=== PATIENT | female | born 1970 | race Caucasian/White ===

== ENCOUNTER 2017-01-26 08:53 | Outpatient (CLI) | payer BC ==
[2017-01-26] MEDS ORDERED: Iopamidol 370 76% 100 ML VIAL ONE (09:00)
--- NOTE | 2017-01-26 11:42 | CT ---
CONTRAST ENHANCED CT IMAGES OF THE ABDOMEN AND PELVIS: History: Lower abdominal pain. R10.30 Technique: Contrast enhanced CT images of the abdomen and pelvis obtained on 01-26-17. Comparison: 03-23-13 FINDINGS: Contrast enhanced CT images of the abdomen and pelvis demonstrate gastric surgical miesha and clips in place. Gastric bypass changes seen. The lung bases are unremarkable. No evidence of free intraperitoneal air is seen. The liver and spleen are unremarkable. The pancreas is unremarkable. The gallbladder has been surgica lly removed. Adrenal glands are unremarkable. The kidneys are unremarkable. No evidence of periaortic lymphadenopathy is seen. There is a right ovarian cyst or cystic lesion with 3D measurements measuring 4.4 x 4.1 x 4.1 cm. Thi s has not significantly changed since the previous exam. No other significant abnormality is seen. IMPRESSION: Right ovarian cyst or cystic lesion. Correlate with pelvic sonography, electively. POS: [facility]
== END 2017-01-26 08:54 | disposition home or self-care (01) ==
LOC: SCSCT 08:53
PROVIDERS: ATTEND Family Medicine
DX: R10.30 Lower abdominal pain, unspecified (principal); N83.201 Unspecified ovarian cyst, right side
CPT/HCPCS: 74177

== ENCOUNTER 2017-02-05 05:25 | Emergency (ER) | payer BC ==
[2017-02-05] MEDS ORDERED: Ondansetron HCl/PF 4 MG/2 ML Vial ONE (06:19)
[2017-02-05 06:49] LABS: #Basophils 0.1 thou/uL (0.0-0.2); #Lymphocytes 1.4 thou/uL (1.20-3.40); #Monocytes 0.7 thou/uL (0.11-0.59); #Neutrophils 6.6 thou/uL (1.40-6.50); %Basophils 0.8 % (0.0-1.0); %Eosinophils 0.3 % (0.0-10.0); %Lymphocytes 15.4 % (21.0-51.0); %Monocytes 8.2 % (0.0-10.0); %Neutrophils 75.3 % (42.0-75.0); Hemoglobin 17.2 g/dL (12.0-16.0); Mean Corpuscular HGB CONC 33.1 g/dL (32.0-36.0); Mean Corpuscular Volume 81.6 fl (81.0-99.0); Mean Platelet Volume 7.6 fL (7.4-10.4); Platelet Count 187 thou/uL (130-400); RBC Distribution Width 12.3 % (11.5-14.5); Red Blood Cell (RBC) Count 6.39 mill/uL (4.20-5.40); White Blood Cell (WBC) Count 8.8 thou/uL (4.8-10.8)
[2017-02-05] MEDS ORDERED: Ketorolac Tromethamine 30 MG/ML VIAL ONE (07:12)
[2017-02-05 07:15] LABS: ALT (SGPT) 39 U/L (8-55); AST (SGOT) 103 U/L (5-34); Albumin 2.7 g/dL (3.5-5.0); Alkaline Phosphatase 77 U/L (40-150); Anion Gap 14 mmol/L (10-20); BUN (Urea Nitrogen) 17 mg/dL (7.0-18.7); Bilirubin, Total 0.4 mg/dL (0.2-1.2); CK (CPK) 4764 U/L (29-168); Calc. Creatinine Clearance 0 mL/min (70-130); Calcium 8.3 mg/dL (7.8-10.44); Carbon Dioxide 25 mmol/L (22-29); Chloride 100 mmol/L (98-107); Estimated GFR-MDRD 81; Globulin 2.5 g/dL (2.4-3.5); Glucose 113 mg/dL (70-105); Protein, Total 5.2 g/dL (6.0-8.3); Sodium 135 mmol/L (136-145)
[2017-02-05 08:11] LABS: Bilirubin Small (Negative); Blood, Urine Moderate (Negative); Clarity Hazy (Clear); Glucose, Urine (Dipstick) Negative (Negative); Leukocyte Negative (Negative); Nitrite Negative (Negative); Protein, Urine (Dipstick) 30 mg/dL (Neg-Trace); Specific Gravity, Urine 1.028 (1.002-1.036)
[2017-02-05 08:12] LABS: Pregnancy Test - Urine (BHCG) Negative (Negative); Pregu Control Background? CLEAR/WHITE (CLR/WHITE); Pregu Control Bar Appear? YES (CONTROL BAR); Specific Gravity 1.028 (1.002-1.036)
[2017-02-05 08:21] LABS: WBC/HPF None Seen HPF (0-3)
[2017-02-05 08:22] LABS: Bacteria/HPF 1+ HPF (None Seen)
[2017-02-05 19:49] LABS: Amphetamine Not Detected (NotDetected); Barbiturates Screen Not Detected (NotDetected); Benzodiazepine Screen Not Detected (NotDetected); Cocaine Metabolite Screen Not Detected (NotDetected); Medtox Control Line Valid? VALID (VALID); Methadone Not Detected (NotDetected); Methamphetamine Not Detected (NotDetected); Opiate Screen Detected (NotDetected); Oxycodone Screen Not Detected (NotDetected); Phencyclidine (PCP) Not Detected (NotDetected); THC/Cannabinoid Screen Not Detected (NotDetected); Tricyclic Screen Detected (NotDetected)
== END 2017-02-05 10:07 | disposition home or self-care (01) ==
LOC: SCSER 05:25
DX: J11.1 Influenza due to unidentified influenza virus with other respiratory manifestations (principal); R74.8 Abnormal levels of other serum enzymes
CPT/HCPCS: 80053; 80306; 81003; 81015; 81025; 82550; 85025; J1885; J2405

== ENCOUNTER 2017-02-05 16:33 | Inpatient (IN) | payer BC ==
[2017-02-05] MEDS ORDERED: Ondansetron HCl/PF 4 MG/2 ML Vial ONE (18:15)
[2017-02-05] MEDS ORDERED: Morphine 4 MG/ML VIAL ONE (18:15)
[2017-02-05 18:30] LABS: #Monocytes 0.7 thou/uL (0.11-0.59); #Neutrophils 10.2 thou/uL (1.40-6.50); %Basophils 0.1 % (0.0-1.0); %Eosinophils 0.1 % (0.0-10.0); %Lymphocytes 8.5 % (21.0-51.0); %Monocytes 5.6 % (0.0-10.0); %Neutrophils 85.8 % (42.0-75.0); Hemoglobin 18.4 g/dL (12.0-16.0); Mean Corpuscular Hemoglobin 28.3 pg (27.0-31.0); Mean Corpuscular Volume 85.7 fl (81.0-99.0); Mean Platelet Volume 7.5 fL (7.4-10.4); Platelet Count 182 thou/uL (130-400); RBC Distribution Width 13.6 % (11.5-14.5); Red Blood Cell (RBC) Count 6.49 mill/uL (4.20-5.40); White Blood Cell (WBC) Count 11.9 thou/uL (4.8-10.8)
[2017-02-05 18:50] LABS: ALT (SGPT) 110 U/L (8-55); AST (SGOT) 327 U/L (5-34); Albumin 2.8 g/dL (3.5-5.0); Alkaline Phosphatase 82 U/L (40-150); Anion Gap 15 mmol/L (10-20); BUN (Urea Nitrogen) 12 mg/dL (7.0-18.7); Bilirubin, Total 0.4 mg/dL (0.2-1.2); Calc. Creatinine Clearance 0 mL/min (70-130); Calcium 8.3 mg/dL (7.8-10.44); Carbon Dioxide 20 mmol/L (22-29); Chloride 102 mmol/L (98-107); Estimated GFR-MDRD Greater than 90; Globulin 2.7 g/dL (2.4-3.5); Glucose 131 mg/dL (70-105); Potassium 4.2 mmol/L (3.5-5.1); Protein, Total 5.5 g/dL (6.0-8.3); Sodium 133 mmol/L (136-145)
[2017-02-05 19:04] LABS: CK (CPK) 17531 U/L (29-168)
[2017-02-05] MEDS ORDERED: Acetaminophen 650 MG Suppository PR PRN (19:16)
[2017-02-05] MEDS ORDERED: Bisacodyl 5 MG TAB PO PRN (19:16)
[2017-02-05] MEDS ORDERED: cefTRIAXone\\ROCEPHIN 2 GM in Sodium Chloride 0.9% 100 ML IVPB SCH (19:30)
[2017-02-05] MEDS ORDERED: cefTRIAXone\\ROCEPHIN 1 GM in Sodium Chloride 0.9% 100 ML IVPB SCH (19:30)
--- NOTE | 2017-02-05 19:50 | HP ---
CHIEF COMPLAINT: Body aches. HISTORY OF PRESENT ILLNESS: Ms. Sumner is a pleasant 46-year-old lady, who was seen at [facility] on 02/05/2017. She reports that her son and daughter tested positive for flu recently. Over the last 2 days, she has had body aches. She was diagnosed with flu at an Urgent [facility] 2 days ago. She has ongoing body aches. She also reports headache. She also reports temperature of 100.1 degrees Fahrenheit at home. She also reports having dry heaves until 2 days ago. She now has nausea. She feels lightheaded with movement. She denies any urinary symptoms. She reports poor oral intake. She denies any abdominal pain. She went to [facility] earlier today. She was diagnosed with rhabdomyolysis and was recommended admission. She declined admission and went home. She subsequently presented at this emergency room for further management. REVIEW OF SYSTEMS: The following complete review of systems was negative, unless otherwise mentioned in the HPI or below: Constitutional: Weight loss or gain, sense of well-being, ability to conduct usual activities, exercise tolerance. Skin/Breast: Rash, itching, changes in hair growth or loss, nail changes, breast lumps, tenderness, swelling, nipple discharge. Eyes: Vision, double vision, tearing, blind spots, pain. ENT/Mouth: Headaches (location, time of onset, duration, precipitating factors) , vertigo, lightheadedness, injury. Vision, double vision, tearing, blind spots , pain, nose bleeding, colds, obstruction, discharge, dental difficulties, gingival bleeding, dentures, neck stiffness, pain, tenderness, masses in thyroid or other areas Cardiovascular: Precordial pain, substernal distress, palpitations, syncope, dyspnea on exertion, orthopnea, nocturnal paroxysmal dyspnea, edema, cyanosis, hypertension, heart murmurs, varicosities, phlebitis, claudication. Respiratory: Pain, shortness of breath, wheezing, stridor, cough, hemoptysis, fever or night sweats Gastrointestinal: Poor appetite, dysphagia, indigestion, abdominal pain, heartburn, eructation, nausea, vomiting, hematemesis, jaundice, constipation, or diarrhea, abnormal stools (kvng-colored, tarry, bloody, greasy, foul smelling ), flatulence, hemorrhoids, recent changes in bowel habits. Genitourinary: Urgency, frequency, dysuria, nocturia, hematuria, polyuria, oliguria, unusual (or change in) color of urine, stones, hesitancy, change in size of stream, dribbling, acute retention or incontinence, libido, potency. Musculoskeletal: Pain, swelling, redness or heat of muscles or joints, limitation, of motion, muscular weakness, atrophy, cramps. Neurologic/Psychiatric: Convulsions, paralyses, tremor, incoordination, parasthesias, difficulties with memory of speech, sensory or motor disturbances , or muscular coordination (ataxia, tremor), emotional problems, anxiety, depression, previous psychiatric care, unusual perceptions, hallucinations. Allergy/Immunologic: Skin rash, anemia, bleeding tendency, polydipsia, polyuria , intolerance to heat or cold. PAST MEDICAL HISTORY: Significant for hypothyroidism, iron deficiency anemia, irregular menses, depression, insomnia, gastroesophageal reflux disease, and temporomandibular joint problems. PAST SURGICAL HISTORY: Significant for gastric bypass, cholecystectomy, and section x2. SOCIAL HISTORY: The patient denies tobacco use, alcohol use or recreational drug use. FAMILY HISTORY: Significant for hypertension in her sister and mother. ALLERGIES: LEVAQUIN, which causes rash. CURRENT MEDICATIONS: These include levothyroxine 125 mcg daily and Seroquel 100 mg daily. PHYSICAL EXAMINATION: GENERAL: Ms. Sumner is awake and alert, not in acute distress. VITAL SIGNS: Blood pressure is 131/97, pulse is 102. She is breathing at rate of 20 and saturating 96% on room air. She is afebrile. EYES: No scleral icterus. No conjunctival pallor. ENT: Dry mucosal membranes. No oropharyngeal erythema or exudates. NECK: Supple, nontender, normal range of movement. Trachea is midline. RESPIRATORY: Accessory muscles of breathing are not active. Chest wall movements are symmetric bilaterally. LUNGS: Clear to auscultation without wheeze, rhonchi, or crepitations. CARDIOVASCULAR: S1 and S2 are heard, tachycardic and regular. LUNGS: Peripheral pulses palpable. No carotid bruit, no pericardial rub. ABDOMEN: Soft, nontender, bowel sounds heard, no hepatomegaly, no splenomegaly. NEUROLOGIC: Cranial nerves II through XII are intact. Deep tendon reflexes 2+. MUSCULOSKELETAL: Power is 5/5 in all 4 extremities. Normal range of movement at all major extremity joints. SKIN: No rashes or subcutaneous nodules. LYMPHATIC: No cervical lymphadenopathy. PSYCHIATRIC: Normal mood, normal affect, patient is oriented to person, place, and time. Ms. Sumner's labs and investigations were reviewed. Urinalysis is positive for protein, nitrite, blood, bilirubin, and bacteria. She has leukocytosis with 11, 900 white cells, of which 85.8% on neutrophils. She has polycythemia with hemoglobin of 18.4. Platelet count is normal. Sodium is decreased at 133, potassium is normal, lactic acid is elevated at 4.2, carbon dioxide is decreased at 20, creatinine is normal at 0.69, AST is elevated at 327, ALT is elevated at 110, total bilirubin and alkaline phosphatase are normal and a urine test is negative. Her CK was 6520 earlier today, now it is 17,531. ASSESSMENT AND PLAN: Ms. Sumner is a pleasant 46-year-old lady, who was seen at [facility] on 02/05/2017. Her problem list includes: 1. Rhabdomyolysis: Most likely secondary to influenza or other viral illness. She will be admitted to the hospital and treated with intravenous fluids. Her creatinine is normal at this time. This will need to be followed. 2. Influenza infection: Suspected. Influenza screen is pending. However, since it has been a few days since the onset of her symptoms, patient and her do not want to be started on Tamiflu (they discussed with the ER physician at [facility]). 3. Hyponatremia: Mild, recheck. 4. Abnormal liver function test: Isolated transaminitis, likely due to rhabdomyolysis. Recheck liver function tests. 5. Elevated lactic acid: Likely due to infection, rechecked. 6. Urinary tract infection: Suspected. Continue ceftriaxone, which has been started in the emergency room. I will await urine cultures and blood cultures. Many thanks for allowing me to participate in your patient's care. Please feel free to contact me with any questions or concerns. LEVEL OF RISK: Moderate. LEVEL OF COMPLEXITY: Moderate. MTDD
--- NOTE | 2017-02-05 21:19 | RAD ---
AP VIEW OF THE CHEST: INDICATIONS: Cough. IMPRESSION: No air space consolidation to suggest pneumonia. COMMENTS: The exam has not appreciably changed from the comparison dated 11/07/2013. POS: [facility]
[2017-02-05 23:40] LABS: Lactic Acid 5.2 mmol/L (0.5-2.2)
[2017-02-06] MEDS: Sodium Chloride 0.9% 1,000 ML IV SCH ×3 (01:50→16:39)
[2017-02-06] MEDS: Acetaminophen 325 MG TAB PO PRN ×3 (01:50→23:15)
[2017-02-06] MEDS ORDERED: Morphine 5 mg/5 ml in 0.9% NaCl/PF SYRINGE SLOW IVP SCH (03:00)
[2017-02-06 04:01] VITALS: BMI 34.7
[2017-02-06 05:59] LABS: #Lymphocytes 1.5 thou/uL (1.20-3.40); #Monocytes 1.1 thou/uL (0.11-0.59); #Neutrophils 12.1 thou/uL (1.40-6.50); %Basophils 0.2 % (0.0-1.0); %Eosinophils 0.2 % (0.0-10.0); %Lymphocytes 9.9 % (21.0-51.0); %Monocytes 7.3 % (0.0-10.0); %Neutrophils 82.4 % (42.0-75.0); Hemoglobin 17.3 g/dL (12.0-16.0); Mean Corpuscular HGB CONC 31.7 g/dL (32.0-36.0); Mean Corpuscular Hemoglobin 27.6 pg (27.0-31.0); Mean Platelet Volume 7.3 fL (7.4-10.4); Platelet Count 215 thou/uL (130-400); RBC Distribution Width 13.8 % (11.5-14.5); Red Blood Cell (RBC) Count 6.26 mill/uL (4.20-5.40); White Blood Cell (WBC) Count 14.7 thou/uL (4.8-10.8)
[2017-02-06 06:16] LABS: Lactic Acid 4.2 mmol/L (0.5-2.2)
[2017-02-06 06:17] LABS: Albumin 2.5 g/dL (3.5-5.0)
[2017-02-06 06:19] LABS: Glucose 104 mg/dL (70-105)
[2017-02-06 06:20] LABS: Protein, Total 5.6 g/dL (6.0-8.3)
[2017-02-06 06:21] LABS: Bilirubin, Total 0.2 mg/dL (0.2-1.2); Carbon Dioxide 16 mmol/L (22-29)
[2017-02-06 06:23] LABS: Calc. Creatinine Clearance 169 mL/min (70-130); Estimated GFR-MDRD Greater than 90
[2017-02-06 06:24] LABS: BUN (Urea Nitrogen) 9 mg/dL (7.0-18.7)
[2017-02-06 06:25] LABS: AST (SGOT) 573 U/L (5-34); Bilirubin, Direct 0.2 mg/dL (0.1-0.3)
[2017-02-06 06:28] LABS: Calcium 6.9 mg/dL (7.8-10.44); Chloride 107 mmol/L (98-107); Potassium 4.1 mmol/L (3.5-5.1); Sodium 133 mmol/L (136-145)
[2017-02-06] MEDS: Levothyroxine Sodium 100 MCG TAB PO SCH (06:40)
[2017-02-06 06:58] LABS: Anion Gap 14 mmol/L (10-20)
[2017-02-06 07:33] LABS: ALT (SGPT) 187 U/L (8-55); Alkaline Phosphatase 74 U/L (40-150)
[2017-02-06] MEDS: traMADol HCl 50 MG TAB PO PRN ×3 (08:52→20:43)
[2017-02-06 10:31] LABS: CK (CPK) 32082 U/L (29-168)
[2017-02-06 11:05] LABS: Phosphorus 3.9 mg/dL (2.3-4.7); Uric Acid 4.8 mg/dL (2.6-6.0)
--- NOTE | 2017-02-06 13:16 | PDOC.PN ---
- Subjective Encounter Start Date: 02/06/17 Encounter Start Time: 13:14 Pt seen for followup re: rhabdomyolysis. Reports feeling hot. Slept well. Reports pain all over her body. - Objective MAR Reviewed: Yes Vital Signs & Weight: Vital Signs (12 hours) Temp Pulse Resp BP Pulse Ox 02/06/17 12:51 86 18 135/87 02/06/17 08:53 96.9 F L 91 24 H 137/93 H 98 02/06/17 08:18 97.7 F 88 20 100 02/06/17 08:00 97.7 F 88 20 132/90 100 02/06/17 05:21 100 02/06/17 04:45 16 I&O: 02/05/17 02/06/17 02/07/17 06:59 06:59 06:59 Output Total 600 Balance -600 Result Diagrams: 02/06/17 05:40 02/06/17 05:40 Phys Exam - Physical Examination Constitutional: NAD HEENT: moist MMs, sclera anicteric, oral pharynx no lesions, 2+ tonsils Neck: no nodes, no JVD, supple, full ROM Respiratory: no wheezing, no rales, no rhonchi, clear to auscultation bilateral Cardiovascular: RRR, no rub Gastrointestinal: soft, non-tender, no distention, positive bowel sounds Musculoskeletal: no edema Neurological: moves all 4 limbs Psychiatric: normal affect, A&O x 3 Skin: no rash, cap refill <2 seconds Dx/Plan (1) Rhabdomyolysis Code(s): M62.82 - RHABDOMYOLYSIS Status: Acute (2) Lactic acidosis Code(s): E87.2 - ACIDOSIS Status: Acute (3) Hyponatremia Code(s): E87.1 - HYPO-OSMOLALITY AND HYPONATREMIA Status: Acute (4) Hypothyroidism Code(s): E03.9 - HYPOTHYROIDISM, UNSPECIFIED Status: Chronic (5) Depression Code(s): F32.9 - MAJOR DEPRESSIVE DISORDER, SINGLE EPISODE, UNSPECIFIED Status : Chronic - Plan continue antibiotics * . Corrected calcium level (for albumin) normal at 8.1. Continue antibiotics for now, await cultures. CK level worsening, lactic acidosis still present. Consult nephrology for opinion and help with menagement. Hyponatremia stable. TSH normal, continue synthroid. PRN tramadol for pain. Hypoalbuminemia ? secondary to inflammatory state. Review of Systems - Review of Systems Constitutional: fever Respiratory: negative: Cough, Dry, Shortness of Breath, Hemoptysis, SOB with Excertion, Pleuritic Pain, Sputum, Wheezing Cardiovascular: negative: chest pain, palpitations, orthopnea, paroxysmal nocturnal dyspnea, edema, light headedness Gastrointestinal: negative: Nausea, Vomiting, Abdominal Pain, Diarrhea, Constipation, Melena, Hematochezia, Other Genitourinary: negative: Dysuria, Frequency, Incontinence, Hematuria, Retention Musculoskeletal: Other (pain all over her body) - Medications/Allergies Allergies/Adverse Reactions: Allergies Allergy/AdvReac Type Severity Reaction Status Date / Time [facility] [[facility] Allergy Verified 05/14/14 10:53 Medications: Current Medications Acetaminophen (Tylenol) 650 mg PO Q4H PRN PRN Reason: Headache/Fever or Pain Last Admin: 02/06/17 01:50 Dose: 650 mg Acetaminophen (Tylenol) 650 mg CA Q4H PRN PRN Reason: Headache/Fever or Pain Bisacodyl (Dulcolax) 10 mg PO DAILYPRN PRN PRN Reason: Constipation Sodium Chloride (Normal Saline 0.9%) 1,000 mls @ 100 mls/hr IV .Q10H SHARRI Last Admin: 02/06/17 06:43 Dose: 1,000 mls Ceftriaxone Sodium 1 gm/ (Syringe 0.4 ml/ Sterile Water) 10 mls @ 120 mls/hr SLOW IVP 2100 SHARRI Levothyroxine Sodium (Synthroid) 200 mcg PO 0600 SHARRI Last Admin: 02/06/17 06:40 Dose: 200 mcg Quetiapine Fumarate (Seroquel) 150 mg PO QPM SHARRI Sodium Chloride (Flush - Normal Saline) 10 ml IVF Q12HR SHARRI Last Admin: 02/06/17 08:02 Dose: Not Given Sodium Chloride (Flush - Normal Saline) 10 ml IVF PRN PRN PRN Reason: Saline Flush Tramadol HCl (Ultram) 50 mg PO Q6H PRN PRN Reason: Pain Last Admin: 02/06/17 08:52 Dose: 50 mg
[2017-02-06] MEDS ORDERED: Sodium Bicarbonate 150 MEQ in Dextrose 5% in Water 1,000 ML IV SCH ×2 (16:15)
[2017-02-06] MEDS: Sodium Bicarbonate 150 MEQ in Dextrose 5% in Water 1,000 ML IV SCH ×2 (18:57)
--- NOTE | 2017-02-06 19:43 | CON ---
DATE OF CONSULTATION: 02/06/2017 CONSULTING PHYSICIAN: Ami Foreman M.D. REQUESTING PHYSICIAN: Dr. Dos Santos. REASON FOR CONSULTATION: Rhabdomyolysis worsening metabolic acidosis. IMPRESSION: 1. Rhabdomyolysis, query cause significant. 2. Metabolic acidosis likely in the context of lactic acidemia. PLAN: 1. Aggressive IV fluid resuscitation. We would change the current normal saline which is contributi ng to reexpansion acidosis and switch over to bicarb-based infusion. 2. Avoid any potentially nephrotoxic agents as the patient stands some significant risk of acute tub ular necrosis from the significant rhabdomyolysis. HISTORY OF PRESENT ILLNESS: History is that of a 46-year-old female patient who started complaining of generalized body aches 2-3 days ago, patient recently had contact with family members with flu and was treated conservatively. The patient denies any new medications. Denies any cholesterol medicat ion. The patient presented and was noted with elevated creatine phosphokinase and decision was taken to admit this patient. Initial creatine kinase was 17,531, but at time of dictation has gone up to 32,082 with worsening metabolic acidosis as evidenced by bicarbonate of 16. As a result of these fin dings, the decision has been taken to involve Renal in the management of this case. PAST MEDICAL HISTORY: Significant for hypothyroidism, iron deficiency anemia, depression, insomnia, reflux disease and temporomandibular joint problem. SOCIAL HISTORY: Denies alcohol, tobacco or illicit drug use. FAMILY HISTORY: Significant for kidney disease in the mother. ALLERGIES: LEVAQUIN. MEDICATIONS: Reviewed and as documented on [employer]. PHYSICAL EXAMINATION: GENERAL: The patient was found not to be in any respiratory distress. VITAL SIGNS: Afebrile with temperature 97.7, pulse 88, respiratory rate 18 with a blood pressure 130 /86. HEENT: Unremarkable with moist oral mucosa. Neck was supple. No conjunctival injection or icterus. CARDIOVASCULAR SYSTEM: First and second heart sounds were heard. RESPIRATORY SYSTEM: Clear to auscultation. DIGESTIVE SYSTEM: Revealed a benign abdomen with positive bowel sounds. EXTREMITIES: No peripheral edema. SKIN: No new gross rash. LYMPHATICS: No peripheral lymphadenopathy. SUMMARY: A 46-year-old female patient with worsening rhabdomyolysis. Thank you for this consultation. We will follow with you.
[2017-02-06] MEDS: cefTRIAXone\\ROCEPHIN 1 GM, Syringe 0.4 ML in Sterile Water 9.6 ML SLOW IVP SCH (23:05)
[2017-02-07] MEDS: traMADol HCl 50 MG TAB PO PRN ×3 (04:42→16:46)
[2017-02-07] MEDS: Sodium Bicarbonate 150 MEQ in Dextrose 5% in Water 1,000 ML IV SCH ×8 (04:43→16:45)
[2017-02-07 05:43] LABS: #Lymphocytes 2.1 thou/uL (1.20-3.40); %Basophils 0.2 % (0.0-1.0); %Eosinophils 0.1 % (0.0-10.0); %Lymphocytes 15.9 % (21.0-51.0); %Monocytes 7.4 % (0.0-10.0); %Neutrophils 76.4 % (42.0-75.0); Hemoglobin 18.4 g/dL (12.0-16.0); Mean Corpuscular Hemoglobin 27.7 pg (27.0-31.0); Mean Corpuscular Volume 86.5 fl (81.0-99.0); Mean Platelet Volume 7.8 fL (7.4-10.4); Platelet Count 217 thou/uL (130-400); RBC Distribution Width 14.1 % (11.5-14.5); Red Blood Cell (RBC) Count 6.66 mill/uL (4.20-5.40)
[2017-02-07] MEDS: Levothyroxine Sodium 100 MCG TAB PO SCH (06:27)
[2017-02-07 08:07] LABS: ALT (SGPT) 350 U/L (8-55); AST (SGOT) 899 U/L (5-34); Albumin 2.1 g/dL (3.5-5.0); Alkaline Phosphatase 71 U/L (40-150); Anion Gap 15 mmol/L (10-20); BUN (Urea Nitrogen) 10 mg/dL (7.0-18.7); Bilirubin, Direct 0.1 mg/dL (0.1-0.3); Bilirubin, Total 0.4 mg/dL (0.2-1.2); Calc. Creatinine Clearance 180 mL/min (70-130); Calcium 8.3 mg/dL (7.8-10.44); Carbon Dioxide 26 mmol/L (22-29); Chloride 98 mmol/L (98-107); Estimated GFR-MDRD Greater than 90; Glucose 123 mg/dL (70-105); Potassium 3.9 mmol/L (3.5-5.1); Protein, Total 4.6 g/dL (6.0-8.3); Sodium 135 mmol/L (136-145)
[2017-02-07 11:06] LABS: Lactic Acid 6.3 mmol/L (0.5-2.2)
[2017-02-07 11:35] LABS: CK (CPK) 33914 U/L (29-168)
--- NOTE | 2017-02-07 12:41 | CON ---
DATE OF CONSULTATION: 02/07/2017 REASON FOR CONSULTATION: Rhabdomyolysis with fever. HISTORY OF PRESENT ILLNESS: A 46-year-old with history of gastric bypass few years ago and also hypothyroidism and iron deficiency who developed fever, went to urgent care and because family members had been diagnosed with influenza, she was diagnosed with the same viral infection, although no treatment was given because reportedly symptoms had started many days prior to the arrival at the emergency room. She continued to feel unwell particularly with myalgias which are more prominent in the posterior neck area and shoulders and she has some headaches. Not much cough. No nasal congestion, no abdominal pain or vomiting, no diarrhea, no genitourinary symptoms, little bit of lightheadedness. She went to [facility] ER and was told to be admitted because of evidence of rhabdomyolysis. She declined admission, went home and then came back because of persistence of the symptoms of pain. Initial findings, BP 130/97, pulse 102, respiratory rate 20, O2 sat 96%. No fever. PAST MEDICAL HISTORY: Hypothyroidism, gastric bypass, iron deficiency, GERD, TMJ, depression, insomnia, cholecystectomy, x2. SOCIAL HISTORY: Never a smoker. 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 FAMILY HISTORY: Hypertension. ALLERGIES: LEVAQUIN with rash. CURRENT MEDICATIONS: Tylenol, Dulcolax, Rocephin, Seroquel, and tramadol. PHYSICAL EXAMINATION: VITAL SIGNS: The patient has been afebrile since admission, BP 130/70, pulse 99 -107, respiratory rate 18, O2 sat 96%. GENERAL: Appears in no distress. SKIN: Normal, peripheral IV access in the left upper extremity. No Glover catheter. HEENT: Ocular movements are conjugate. Oral cavity normal. NECK: Supple. LUNGS: With symmetric clear breath sounds. HEART: S1, S2, regular rate. ABDOMEN: Soft, but distended, has difficulty moving extremities because of myalgias. EXTREMITIES: No joint inflammatory activity noted. Pulses are 1+ in dorsalis pedis. No clubbing, cyanosis or edema. NEUROLOGIC: Cognitive function appears to be intact. LABORATORY DATA: White cell count is up to 13,000, hemoglobin 18, platelets 217 , 76% neutrophils and sodium 135, creatinine was 0.6, bilirubin normal, AST 899 , [place] [address]. Albumin 2.5. Microbiology: We have 2 sets of blood cultures thus far negative. Urine culture, no growth. Influenza, antigen test negative. She had abdomen and pelvis CT from on 01/26/2017, which showed just ovarian cyst and chest x-ray with no infiltrates. ASSESSMENT: 1. History of gastric bypass. 2. Rhabdomyolysis with fever. DISCUSSION: Most likely scenario is influenza A infection with rhabdomyolysis. The patient's initial antigen test negative, but in view of the false negative rates, Dr. Peña has already ordered the more sensitive test and await on results of that. We will check thiamine, zinc, copper and because of the bypass surgery and the fact the patient acknowledges not taking her supplement vitamins as had been recommended. MTDD
--- NOTE | 2017-02-07 15:32 | PQF ---
CLINICAL DOCUMENTATION IMPROVEMENT CLARIFICATION FORM: ICD-10 Updated PLEASE DO AN ADDENDUM TO THE PROGRESS NOTE WITH ANY DOCUMENTATION UPDATES OR ADDITIONS AND CARRY THROUGH TO DC SUMMARY. THANK YOU. DATE: 02/07/17 ATTN : DR. AJ Please exercise your independent, professional judgment in responding to the clarification form. Clinical indicators are provided on the bottom of this form for your review Please check appropriate box(s): [ ] Sepsis due to: (Pna, UTI, gangrenous gall bladder, etc.) Due to: [ ] Device (please specify) [ ] Implant [ ] Graft [ ] Infusion [ ] SIRS due to non-infectious process (please specify etiology) [ ] with organ dysfunction [ ] without organ dysfunction [ ] Severe sepsis with acute organ dysfunction of: (Examples: respiratory failure, encephalopathy, acute kidney failure, other) [ ] Localized infection without sepsis [ ] Other diagnosis [ ] Unable to determine In addition, please specify: Present on Admission (POA): [ ] Yes [ ] No [ ] Unable to determine For continuity of documentation, please document condition throughout progress notes and discharge summary. Thank You. CLINICAL INDICATORS - SIGNS / SYMPTOMS / LABS WBC 14.7 LACTIC ACID 6.3 TEMP 96.2 PULSE 107 RR 24 RISKS: INFLUENZA + RHABDOMYOLYSIS TREATMENT: IV FLUIDS (ER-PRESENT) IV ROCEPHIN (ER-PRESENT) IV VANCOMYCIN (ER) BLOOD AND URINE CULTURES SERIAL LABS INFECTIOUS DISEASE CONSULT (This form is maintained as a part of the permanent medical record) 2014 [employer], Part of [employer]. All Rights Reserved MTDD
--- NOTE | 2017-02-07 16:28 | SPC ---
PICC PLACEMENT ULTRASOUND GUIDED VENOUS ACCESS: (Peripherally Inserted Central Catheter) HISTORY: A 46-year-old female, requiring long-term IV access for treatment of rhabdomyolysis, and infection of unknown organism. TECHNIQUE: Catheter caliber: 5 Y[place]ut Catheter trim length: 45.5 cm Catheter lumen number: Single Catheter tip location: Upper right atrium Vein accessed: Left basilic Signed, informed consent was obtained. A tourniquet was applied at the proximal aspect of the arm. The arm was prepared and draped in the usual sterile fashion. A 25 gauge needle was used to apply bu ffered Lidocaine superficially. The vein was punctured with a 21 gauge micropuncture needle, under u ltrasound guidance. A 0.018 inch guide wire was advanced through the micropuncture needle and into t he vein. Under fluoroscopic guidance, the guide wire was advanced to the right atrium. The PICC (pe ripherally inserted central catheter) was flushed and trimmed to the appropriate length. The skin pu ncture hole was widened with a blade. The micropuncture needle was exchanged over the guide wire for a 5 Yakut peel-away dilator sheath. The dilator was exchanged over the guide wire for the PICC, wh ich was then further advanced under fluoroscopy. The sheath and guide wire were removed. The PICC w as flushed again and secured in place at the arm. The patient tolerated the procedure well. There w as no complication. FINDINGS: Ultrasound images used to access the left basilic vein demonstrate severe edema throughout the soft t issues of the left arm. The fluoroscopic spot image of the chest, with limited field of view, demonstrates the distal tip of the PICC in the upper aspect of the right atrium. IMPRESSION: 1. Successful placement of PICC (peripherally inserted central catheter). 2. Severe edema of the left arm. tony [] POS: [facility]
[2017-02-07] MEDS: Dextrose 5 % And 0.9 % NaCl 1,000 ML IV SCH (18:50)
[2017-02-07] MEDS: Oseltamivir 75 MG CAP PO SCH (21:48)
[2017-02-07] MEDS: cefTRIAXone\\ROCEPHIN 1 GM, Syringe 0.4 ML in Sterile Water 9.6 ML SLOW IVP SCH (22:12)
[2017-02-08] MEDS: Dextrose 5 % And 0.9 % NaCl 1,000 ML IV SCH ×4 (00:52→18:21)
[2017-02-08] MEDS: traMADol HCl 50 MG TAB PO PRN ×2 (01:08→12:44)
[2017-02-08 04:36] LABS: Lactic Acid 3.4 mmol/L (0.5-2.2)
[2017-02-08 04:43] LABS: #Monocytes 0.8 thou/uL (0.11-0.59); #Neutrophils 10.8 thou/uL (1.40-6.50); %Basophils 0.2 % (0.0-1.0); %Eosinophils 0.1 % (0.0-10.0); %Lymphocytes 14.9 % (21.0-51.0); %Monocytes 5.6 % (0.0-10.0); %Neutrophils 79.2 % (42.0-75.0); Hemoglobin 15.2 g/dL (12.0-16.0); Mean Corpuscular HGB CONC 32.2 g/dL (32.0-36.0); Mean Corpuscular Hemoglobin 28.2 pg (27.0-31.0); Mean Corpuscular Volume 87.5 fl (81.0-99.0); Mean Platelet Volume 7.7 fL (7.4-10.4); Platelet Count 235 thou/uL (130-400); RBC Distribution Width 14.1 % (11.5-14.5); Red Blood Cell (RBC) Count 5.39 mill/uL (4.20-5.40); White Blood Cell (WBC) Count 13.7 thou/uL (4.8-10.8)
[2017-02-08 05:07] LABS: ALT (SGPT) 347 U/L (8-55); AST (SGOT) 772 U/L (5-34); Albumin 1.8 g/dL (3.5-5.0); Alkaline Phosphatase 58 U/L (40-150); Anion Gap 11 mmol/L (10-20); BUN (Urea Nitrogen) 14 mg/dL (7.0-18.7); Bilirubin, Total 0.4 mg/dL (0.2-1.2); Calc. Creatinine Clearance 174 mL/min (70-130); Calcium 7.9 mg/dL (7.8-10.44); Carbon Dioxide 29 mmol/L (22-29); Chloride 96 mmol/L (98-107); Estimated GFR-MDRD Greater than 90; Globulin 2.2 g/dL (2.4-3.5); Glucose 125 mg/dL (70-105); Magnesium 1.7 mg/dL (1.6-2.6); Phosphorus 2.5 mg/dL (2.3-4.7); Sodium 132 mmol/L (136-145)
[2017-02-08 05:08] LABS: CK (CPK) 27400 U/L (29-168)
--- NOTE | 2017-02-08 05:41 | PDOC.PN ---
- Subjective Encounter Start Date: 02/07/17 Encounter Start Time: 10:00 Patient seen and examined. Feels gen weak/fatigued. Gen muscle cramps. No overnight events - Objective MAR Reviewed: Yes Vital Signs & Weight: Vital Signs (12 hours) Temp Pulse Resp BP Pulse Ox 02/08/17 04:00 98.4 F 99 20 115/86 98 02/08/17 00:55 103 H 20 117/81 02/07/17 20:00 97.7 F 103 H 20 131/93 H 99 02/07/17 17:55 97.6 F 106 H 18 140/101 H 98 I&O: 02/06/17 02/07/17 02/08/17 06:59 06:59 06:59 Intake Total 2100 Output Total 1230 700 Balance 870 -700 Result Diagrams: 02/08/17 04:01 02/08/17 04:01 Additional Labs: Laboratory Tests 02/07/17 02/07/17 06:24 10:28 Lactic Acid 6.3 H* Creatine Kinase 08758 H Radiology Reviewed by me: Yes (CXR - no infiltrate) Phys Exam - Physical Examination Constitutional: NAD Respiratory: no wheezing, no rales, no rhonchi, clear to auscultation bilateral Cardiovascular: RRR, no significant murmur, no rub no heaves Gastrointestinal: soft, non-tender, no distention, positive bowel sounds Musculoskeletal: no edema Neurological: non-focal, normal sensation, moves all 4 limbs Psychiatric: A&O x 3 Dx/Plan - Plan DVT proph w/SCDs IMPRESSION: 1. Sepsis with acute organ dysfunction due to Influenza A 2. Rhabdomyolysis 3. Lactic acidosis 4. Hypothyroidism 5. Abn LFTs prob due to sepsis/rhabdomyolysis 6. h/o gastric bypass PLAN: * PCR done - results noted * Tamiflu started * Cont IVF per Nephrology * AM labs * Transfer to IMCU for close monitoring due to worsening lactic acidosis (this was done prior to results of resp viral panel) * Consult ID * EDMOND panel (ordered prior to diagnosis of Influenza A Review of Systems - Review of Systems Respiratory: Cough, Dry Cardiovascular: negative: chest pain, palpitations, orthopnea, paroxysmal nocturnal dyspnea, edema, light headedness Gastrointestinal: negative: Nausea, Vomiting, Abdominal Pain, Diarrhea, Constipation, Melena, Hematochezia - Medications/Allergies Allergies/Adverse Reactions: Allergies Allergy/AdvReac Type Severity Reaction Status Date / Time levofloxacin [From Levaquin] Allergy Verified 05/14/14 10:53 Medications: Current Medications Acetaminophen (Tylenol) 650 mg PO Q4H PRN PRN Reason: Headache/Fever or Pain Last Admin: 02/06/17 23:15 Dose: 650 mg Acetaminophen (Tylenol) 650 mg VA Q4H PRN PRN Reason: Headache/Fever or Pain Bisacodyl (Dulcolax) 10 mg PO DAILYPRN PRN PRN Reason: Constipation Ceftriaxone Sodium 1 gm/ (Syringe 0.4 ml/ Sterile Water) 10 mls @ 120 mls/hr SLOW IVP 2100 SHARRI Last Admin: 02/07/17 22:12 Dose: 10 mls Dextrose/Sodium Chloride (D5 0.9% Ns) 1,000 mls @ 150 mls/hr IV .Q6H40M SHARRI Last Admin: 02/08/17 00:52 Dose: 1,000 mls Levothyroxine Sodium (Synthroid) 200 mcg PO 0600 SHARRI Last Admin: 02/07/17 06:27 Dose: 200 mcg Oseltamivir Phosphate (Tamiflu) 75 mg PO BID SHARRI Stop: 02/12/17 09:01 Last Admin: 02/07/17 21:48 Dose: 75 mg Quetiapine Fumarate (Seroquel) 150 mg PO QPM SHARRI Last Admin: 02/07/17 21:48 Dose: 150 mg Sodium Chloride (Flush - Normal Saline) 10 ml IVF Q12HR SHARRI Last Admin: 02/07/17 08:26 Dose: Not Given Sodium Chloride (Flush - Normal Saline) 10 ml IVF PRN PRN PRN Reason: Saline Flush Tramadol HCl (Ultram) 50 mg PO Q6H PRN PRN Reason: Pain Last Admin: 02/08/17 01:08 Dose: 50 mg
[2017-02-08] MEDS: Levothyroxine Sodium 100 MCG TAB PO SCH (05:44)
[2017-02-08] MEDS: Oseltamivir 75 MG CAP PO SCH ×2 (08:57→20:36)
[2017-02-08] MEDS: Enoxaparin Sodium 40 MG/0.4 ML SYRINGE SC SCH (08:57)
[2017-02-08 11:17] LABS: Antinuclear AB Negative (Negative)
--- NOTE | 2017-02-08 16:52 | PRG ---
DATE OF SERVICE: 02/08/2017 SUBJECTIVE: The patient was seen and examined, still feeling lousy with minimal exercise tolerance a nd noted with the following vital signs. PHYSICAL EXAMINATION: VITAL SIGNS: Afebrile with temperature 97.6, pulse 91, respiratory rate 18, O2 saturation 97%, blood pressure 112/74. HEENT EXAMINATION: Unremarkable. CARDIOVASCULAR SYSTEM: First and second heart sounds were heard. RESPIRATORY SYSTEM: Clear to auscultation. DIGESTIVE SYSTEM: Revealed a benign abdomen with positive bowel sounds. EXTREMITIES: Showed some peripheral edema, especially left upper extremity. LYMPHATICS: No peripheral lymphadenopathy. LABORATORY INVESTIGATIONS: Showed a sodium of 132. Lactate down to 3.4, creatine kinase down to 27, 400. AST 772, ALT 347, albumin of 1.8. IMPRESSION: 1. Severe rhabdomyolysis, seems to be gradually improving. 2. Elevated liver enzymes in the context of rhabdomyolysis. 3. The patient seems to be getting hypervolemic. 4. Hypoalbuminemia. PLAN: 1. We will begin to deescalate the fluid resuscitation. 2. Continue to monitor the renal function closely. 3. Further management to be dependent on the clinical course.
[2017-02-08] MEDS: cefTRIAXone\\ROCEPHIN 1 GM, Syringe 0.4 ML in Sterile Water 9.6 ML SLOW IVP SCH (20:36)
--- NOTE | 2017-02-08 21:26 | PDOC.PN ---
- Subjective Encounter Start Date: 02/08/17 Encounter Start Time: 13:00 Patient seen and examined. Gen fatigue. Slightly better than yesterday. No overnight events - Objective MAR Reviewed: Yes Vital Signs & Weight: Vital Signs (12 hours) Temp Pulse Resp BP Pulse Ox 02/08/17 18:21 98.0 F 93 20 104/76 96 02/08/17 16:00 97.6 F 91 18 112/74 97 02/08/17 11:45 97.8 F 96 18 130/89 98 I&O: 02/07/17 02/08/17 02/09/17 06:59 06:59 06:59 Intake Total 2100 2130 Output Total 1230 860 Balance 870 1270 Result Diagrams: 02/08/17 04:01 02/08/17 04:01 EKG Reviewed by me: Yes (Tele SR) Phys Exam - Physical Examination Constitutional: NAD Respiratory: no wheezing, no rhonchi Cardiovascular: RRR, no rub Gastrointestinal: soft, non-tender, positive bowel sounds Musculoskeletal: edema present (1 + generalized) Neurological: moves all 4 limbs Psychiatric: A&O x 3 Dx/Plan - Plan DVT proph w/lovenox, DVT proph w/SCDs IMPRESSION: 1. Sepsis with acute organ dysfunction due to Influenza A 2. Rhabdomyolysis 3. Lactic acidosis 4. Hypothyroidism 5. Abn LFTs prob due to sepsis/rhabdomyolysis 6. h/o gastric bypass PLAN: * Cont Tamiflu * Cont IVF per Nephrology * AM labs * Transfer to medical * Cont current meds as below Review of Systems - Review of Systems Cardiovascular: negative: chest pain, palpitations, orthopnea, paroxysmal nocturnal dyspnea, edema, light headedness Gastrointestinal: negative: Nausea, Vomiting, Abdominal Pain, Diarrhea, Constipation, Melena, Hematochezia - Medications/Allergies Allergies/Adverse Reactions: Allergies Allergy/AdvReac Type Severity Reaction Status Date / Time levofloxacin [From Levaquin] Allergy Verified 05/14/14 10:53 Medications: Current Medications Acetaminophen (Tylenol) 650 mg PO Q4H PRN PRN Reason: Headache/Fever or Pain Last Admin: 02/06/17 23:15 Dose: 650 mg Acetaminophen (Tylenol) 650 mg [place] Q4H PRN PRN Reason: Headache/Fever or Pain Bisacodyl (Dulcolax) 10 mg PO DAILYPRN PRN PRN Reason: Constipation Enoxaparin Sodium (Lovenox) 40 mg SC 0900 [facility] Last Admin: 02/08/17 08:57 Dose: 40 mg Ceftriaxone Sodium 1 gm/ (Syringe 0.4 ml/ Sterile Water) 10 mls @ 120 mls/hr SLOW IVP 2100 [facility] Last Admin: 02/08/17 20:36 Dose: 10 mls Dextrose/Sodium Chloride (D5 0.9% Ns) 1,000 mls @ 75 mls/hr IV .[id number] [facility] Last Admin: 02/08/17 18:21 Dose: Not Given Levothyroxine Sodium (Synthroid) 200 mcg PO 0600 [facility] Last Admin: 02/08/17 05:44 Dose: 200 mcg Oseltamivir Phosphate (Tamiflu) 75 mg PO BID [facility] Stop: 02/12/17 09:01 Last Admin: 02/08/17 20:36 Dose: 75 mg Quetiapine Fumarate (Seroquel) 150 mg PO QPM [facility] Last Admin: 02/08/17 20:33 Dose: 150 mg Sodium Chloride (Flush - Normal Saline) 10 ml IVF Q12HR [facility] Last Admin: 02/08/17 20:36 Dose: Not Given Sodium Chloride (Flush - Normal Saline) 10 ml IVF PRN PRN PRN Reason: Saline Flush Tramadol HCl (Ultram) 50 mg PO Q6H PRN PRN Reason: Pain Last Admin: 02/08/17 12:44 Dose: 50 mg
[2017-02-09] MEDS: Dextrose 5 % And 0.9 % NaCl 1,000 ML IV SCH ×3 (00:39→16:57)
[2017-02-09] MEDS: traMADol HCl 50 MG TAB PO PRN ×3 (04:43→20:47)
[2017-02-09] MEDS: Levothyroxine Sodium 100 MCG TAB PO SCH (05:34)
[2017-02-09 06:38] LABS: ALT (SGPT) 293 U/L (8-55); AST (SGOT) 531 U/L (5-34); Albumin 1.8 g/dL (3.5-5.0); Alkaline Phosphatase 56 U/L (40-150); Anion Gap 13 mmol/L (10-20); BUN (Urea Nitrogen) 19 mg/dL (7.0-18.7); Bilirubin, Total 0.6 mg/dL (0.2-1.2); Calc. Creatinine Clearance 166 mL/min (70-130); Calcium 7.9 mg/dL (7.8-10.44); Carbon Dioxide 26 mmol/L (22-29); Chloride 97 mmol/L (98-107); Estimated GFR-MDRD Greater than 90; Globulin 2.1 g/dL (2.4-3.5); Glucose 100 mg/dL (70-105); Magnesium 1.6 mg/dL (1.6-2.6); Phosphorus 2.9 mg/dL (2.3-4.7); Potassium 4.1 mmol/L (3.5-5.1); Protein, Total 3.9 g/dL (6.0-8.3); Sodium 132 mmol/L (136-145)
[2017-02-09 06:43] LABS: Band 1 % (5-11); Hemoglobin 14.7 g/dL (12.0-16.0); Lymphocytes 12 % (21-51); MDiff Complete? YES; Mean Corpuscular HGB CONC 32.7 g/dL (32.0-36.0); Mean Corpuscular Hemoglobin 28.1 pg (27.0-31.0); Mean Corpuscular Volume 85.9 fl (81.0-99.0); Monocytes 7 % (0-10); Neutrophil 79 % (42-75); Platelet Count 299 thou/uL (130-400); RBC Distribution Width 13.9 % (11.5-14.5); Reactive Lymphocytes 1 % (0-10); Red Blood Cell (RBC) Count 5.23 mill/uL (4.20-5.40); White Blood Cell (WBC) Count 15.4 thou/uL (4.8-10.8)
[2017-02-09 07:03] LABS: CK (CPK) 14628 U/L (29-168)
[2017-02-09] MEDS: Oseltamivir 75 MG CAP PO SCH ×2 (09:06→20:43)
[2017-02-09] MEDS: Enoxaparin Sodium 40 MG/0.4 ML SYRINGE SC SCH (09:06)
--- NOTE | 2017-02-09 15:23 | PRG ---
DATE OF SERVICE: 02/09/2017 SUBJECTIVE: The patient was seen and examined, seems to be showing some marginal improvement. OBJECTIVE: VITAL SIGNS: Afebrile with temperature 98.1, pulse 87, respiratory rate 16, O2 sat 100%, blood press ure 99/64 to 100/69. HEENT: Unremarkable. Moist oral mucosa. Neck was supple. No conjunctival injection or icterus. CARDIOVASCULAR: First and second heart sounds were heard. RESPIRATORY: Clear to auscultation. DIGESTIVE: Revealed a benign abdomen with positive bowel sounds. EXTREMITIES: No peripheral edema. SKIN: No new gross rash. LYMPHATICS: No peripheral lymphadenopathy. LABORATORY INVESTIGATION: Showed a creatinine kinase down to 14,000. IMPRESSION: Severe rhabdomyolysis in the context of flu seems to be improving. PLAN: 1. Continue renal supportive measures. However, we will begin to deescalate the IV fluid and possib ly discontinue IV fluid within the next 24 hours. 2. The patient to continue to stay well hydrated. 3. Further management to be dependent on the clinical course.
--- NOTE | 2017-02-09 17:52 | PDOC.PN ---
- Subjective Encounter Start Date: 02/09/17 Encounter Start Time: 16:30 Patient seen and examined. Feels gen weak/fatigue +. Gen muscle soreness. No overnight events - Objective MAR Reviewed: Yes Vital Signs & Weight: Vital Signs (12 hours) Temp Pulse Resp BP Pulse Ox 02/09/17 08:00 98.0 F 93 20 95/63 99 I&O: 02/08/17 02/09/17 02/10/17 06:59 06:59 06:59 Intake Total 2130 1453 360 Output Total 860 300 Balance 1270 1153 360 Result Diagrams: 02/09/17 05:50 02/09/17 05:50 Additional Labs: Laboratory Tests 02/09/17 02/09/17 05:50 05:50 Lactic Acid 3.0 H AST 531 H ALT 293 H Creatine Kinase 12064 H Phys Exam - Physical Examination Constitutional: NAD Respiratory: no wheezing, no rhonchi Cardiovascular: RRR, no rub Gastrointestinal: soft, non-tender, positive bowel sounds Musculoskeletal: edema present (anasarca) Neurological: moves all 4 limbs Dx/Plan - Plan PT/OT, DVT proph w/lovenox, DVT proph w/SCDs IMPRESSION: 1. Sepsis with acute organ dysfunction due to Influenza A 2. Rhabdomyolysis - CK improving 3. Lactic acidosis - improving 4. Hypothyroidism 5. Abn LFTs prob due to sepsis/rhabdomyolysis 6. h/o gastric bypass PLAN: * AM labs including CK/Lactic acid * Cont Tamiflu * Cont IVF @75 mlper Nephrology * AM labs * Cont current meds as below Review of Systems - Review of Systems Cardiovascular: negative: chest pain, palpitations, orthopnea, paroxysmal nocturnal dyspnea, edema, light headedness Gastrointestinal: negative: Nausea, Vomiting, Abdominal Pain, Diarrhea, Constipation, Melena, Hematochezia - Medications/Allergies Allergies/Adverse Reactions: Allergies Allergy/AdvReac Type Severity Reaction Status Date / Time levofloxacin [From Levaquin] Allergy Verified 05/14/14 10:53 Medications: Current Medications Acetaminophen (Tylenol) 650 mg PO Q4H PRN PRN Reason: Headache/Fever or Pain Last Admin: 02/06/17 23:15 Dose: 650 mg Acetaminophen (Tylenol) 650 mg [place] Q4H PRN PRN Reason: Headache/Fever or Pain Bisacodyl (Dulcolax) 10 mg PO DAILYPRN PRN PRN Reason: Constipation Enoxaparin Sodium (Lovenox) 40 mg SC 0900 [facility] Last Admin: 02/09/17 09:06 Dose: 40 mg Dextrose/Sodium Chloride (D5 0.9% Ns) 1,000 mls @ 75 mls/hr IV .[id number] [facility] Last Admin: 02/09/17 16:57 Dose: Not Given Levothyroxine Sodium (Synthroid) 200 mcg PO 0600 [facility] Last Admin: 02/09/17 05:34 Dose: 200 mcg Oseltamivir Phosphate (Tamiflu) 75 mg PO BID [facility] Stop: 02/12/17 09:01 Last Admin: 02/09/17 09:06 Dose: 75 mg Quetiapine Fumarate (Seroquel) 150 mg PO QPM [facility] Last Admin: 02/08/17 20:33 Dose: 150 mg Sodium Chloride (Flush - Normal Saline) 10 ml IVF Q12HR [facility] Last Admin: 02/09/17 09:06 Dose: Not Given Sodium Chloride (Flush - Normal Saline) 10 ml IVF PRN PRN PRN Reason: Saline Flush Tramadol HCl (Ultram) 50 mg PO Q6H PRN PRN Reason: Pain Last Admin: 02/09/17 13:31 Dose: 50 mg
[2017-02-10] MEDS: Acetaminophen 325 MG TAB PO PRN (00:10)
[2017-02-10] MEDS: Levothyroxine Sodium 100 MCG TAB PO SCH (05:10)
[2017-02-10] MEDS: traMADol HCl 50 MG TAB PO PRN ×3 (05:11→20:27)
[2017-02-10 06:15] LABS: #Eosinphils 0.2 thou/uL (0.0-0.7); #Lymphocytes 3.2 thou/uL (1.20-3.40); #Neutrophils 9.4 thou/uL (1.40-6.50); %Basophils 0.2 % (0.0-1.0); %Eosinophils 1.5 % (0.0-10.0); %Monocytes 7.2 % (0.0-10.0); %Neutrophils 68.1 % (42.0-75.0); Hemoglobin 13.9 g/dL (12.0-16.0); Mean Corpuscular HGB CONC 32.9 g/dL (32.0-36.0); Mean Corpuscular Hemoglobin 28.2 pg (27.0-31.0); Mean Corpuscular Volume 85.7 fl (81.0-99.0); Mean Platelet Volume 6.7 fL (7.4-10.4); Platelet Count 289 thou/uL (130-400); RBC Distribution Width 14.3 % (11.5-14.5); Red Blood Cell (RBC) Count 4.95 mill/uL (4.20-5.40); White Blood Cell (WBC) Count 13.8 thou/uL (4.8-10.8)
[2017-02-10 06:42] LABS: ALT (SGPT) 250 U/L (8-55); AST (SGOT) 375 U/L (5-34); Albumin 1.9 g/dL (3.5-5.0); Alkaline Phosphatase 59 U/L (40-150); Anion Gap 10 mmol/L (10-20); BUN (Urea Nitrogen) 20 mg/dL (7.0-18.7); Bilirubin, Total 0.7 mg/dL (0.2-1.2); Calc. Creatinine Clearance 166 mL/min (70-130); Carbon Dioxide 28 mmol/L (22-29); Chloride 94 mmol/L (98-107); Estimated GFR-MDRD Greater than 90; Globulin 2.1 g/dL (2.4-3.5); Glucose 87 mg/dL (70-105); Magnesium 1.7 mg/dL (1.6-2.6); Phosphorus 3.3 mg/dL (2.3-4.7); Potassium 4.2 mmol/L (3.5-5.1); Sodium 128 mmol/L (136-145)
[2017-02-10 06:58] LABS: CK (CPK) 7368 U/L (29-168)
[2017-02-10] MEDS: Oseltamivir 75 MG CAP PO SCH ×2 (09:03→20:25)
[2017-02-10] MEDS: Enoxaparin Sodium 40 MG/0.4 ML SYRINGE SC SCH (09:04)
--- NOTE | 2017-02-10 11:34 | PDOC.PN ---
- Subjective Encounter Start Date: 02/10/17 Encounter Start Time: 10:00 Patient seen and examined. No new complaints. No overnight events - Objective MAR Reviewed: Yes Vital Signs & Weight: Vital Signs (12 hours) Temp Pulse Resp BP Pulse Ox 02/10/17 08:00 97.9 F 89 18 108/70 98 02/10/17 04:00 97.9 F 80 20 95/64 98 02/10/17 00:00 98.2 F 86 20 108/73 98 I&O: 02/09/17 02/10/17 02/11/17 06:59 06:59 06:59 Intake Total 1453 1885 Output Total 300 100 Balance 1153 1785 Result Diagrams: 02/10/17 05:50 02/10/17 05:50 Phys Exam - Physical Examination Constitutional: NAD Respiratory: no wheezing, no rhonchi Cardiovascular: RRR, no rub Gastrointestinal: soft, non-tender, positive bowel sounds Musculoskeletal: edema present (gen - improving) Neurological: moves all 4 limbs Dx/Plan - Plan respiratory therapy, DVT proph w/lovenox, DVT proph w/SCDs IMPRESSION: 1. Sepsis with acute organ dysfunction due to Influenza A 2. Rhabdomyolysis 3. Lactic acidosis 4. Hypothyroidism 5. Abn LFTs prob due to sepsis/rhabdomyolysis 6. h/o gastric bypass 7. Zinc deficiency PLAN: * AM labs including CK * Cont Tamiflu * IVF dced * AM labs * Cont current meds as below * Cont PT * DC planning in AM if stable * Replace Zinc Laboratory Tests 02/10/17 02/10/17 05:50 05:50 Lactic Acid 2.0 Creatine Kinase 7368 H Laboratory Tests 02/07/17 02/07/17 14:46 14:46 Copper 77 Plasma Zinc 52 L Review of Systems - Review of Systems Cardiovascular: negative: chest pain, palpitations, orthopnea, paroxysmal nocturnal dyspnea, edema, light headedness Gastrointestinal: negative: Nausea, Vomiting, Abdominal Pain, Diarrhea, Constipation, Melena, Hematochezia - Medications/Allergies Allergies/Adverse Reactions: Allergies Allergy/AdvReac Type Severity Reaction Status Date / Time levofloxacin [From Levaquin] Allergy Verified 05/14/14 10:53 Medications: Current Medications Acetaminophen (Tylenol) 650 mg PO Q4H PRN PRN Reason: Headache/Fever or Pain Last Admin: 02/10/17 00:10 Dose: 650 mg Acetaminophen (Tylenol) 650 mg [place] Q4H PRN PRN Reason: Headache/Fever or Pain Bisacodyl (Dulcolax) 10 mg PO DAILYPRN PRN PRN Reason: Constipation Enoxaparin Sodium (Lovenox) 40 mg SC 0900 [facility] Last Admin: 02/10/17 09:04 Dose: 40 mg Levothyroxine Sodium (Synthroid) 200 mcg PO 0600 [facility] Last Admin: 02/10/17 05:10 Dose: 200 mcg Oseltamivir Phosphate (Tamiflu) 75 mg PO BID [facility] Stop: 02/12/17 09:01 Last Admin: 02/10/17 09:03 Dose: 75 mg Quetiapine Fumarate (Seroquel) 150 mg PO QPM [facility] Last Admin: 02/09/17 20:43 Dose: 150 mg Sodium Chloride (Flush - Normal Saline) 10 ml IVF Q12HR [facility] Last Admin: 02/10/17 09:07 Dose: 10 ml Sodium Chloride (Flush - Normal Saline) 10 ml IVF PRN PRN PRN Reason: Saline Flush Tramadol HCl (Ultram) 50 mg PO Q6H PRN PRN Reason: Pain Last Admin: 02/10/17 05:11 Dose: 50 mg
[2017-02-10] MEDS ORDERED: Furosemide 40 MG/4 ML VIAL SLOW IVP SCH (20:00)
[2017-02-11] MEDS ORDERED: traMADol HCl 50 MG TAB PO SCH (00:30)
--- NOTE | 2017-02-11 01:12 | PRG ---
DATE OF SERVICE: 02/10/2017 SUBJECTIVE: The patient was seen and examined today, seems to be marginally improving, noted with th e following vital signs. OBJECTIVE: VITAL SIGNS: Afebrile with temperature 98, pulse 84, respiratory rate 20, O2 saturation 98%, blood p ressure 107/71. HEENT: Unremarkable with moist oral mucosa. NECK: Supple. No conjunctival injections or icterus. CARDIOVASCULAR SYSTEM: First and second heart sounds were heard. RESPIRATORY SYSTEM: Clear to auscultation. DIGESTIVE SYSTEM: Revealed a benign abdomen. EXTREMITIES: No peripheral edema. IMPRESSION: 1. Severe rhabdomyolysis, which seems to have responded well to conservative management. 2. Hypovolemia. 3. . PLAN: From all indications, the patient seems to be somewhat hypovolemic; therefore will undergo diu resis and avoid GI tract .
[2017-02-11] MEDS: Levothyroxine Sodium 100 MCG TAB PO SCH (05:11)
[2017-02-11] MEDS: Furosemide 40 MG/4 ML VIAL SLOW IVP SCH ×2 (05:12→13:19)
[2017-02-11 05:48] LABS: #Basophils 0.1 thou/uL (0.0-0.2); #Eosinphils 0.2 thou/uL (0.0-0.7); #Lymphocytes 2.1 thou/uL (1.20-3.40); #Monocytes 0.9 thou/uL (0.11-0.59); #Neutrophils 7.6 thou/uL (1.40-6.50); %Basophils 1.2 % (0.0-1.0); %Eosinophils 1.7 % (0.0-10.0); %Lymphocytes 18.9 % (21.0-51.0); %Monocytes 8.2 % (0.0-10.0); %Neutrophils 69.9 % (42.0-75.0); Hemoglobin 12.8 g/dL (12.0-16.0); Mean Corpuscular HGB CONC 33.3 g/dL (32.0-36.0); Mean Corpuscular Hemoglobin 28.4 pg (27.0-31.0); Mean Corpuscular Volume 85.3 fl (81.0-99.0); Mean Platelet Volume 6.8 fL (7.4-10.4); Platelet Count 268 thou/uL (130-400); RBC Distribution Width 14.4 % (11.5-14.5); White Blood Cell (WBC) Count 10.8 thou/uL (4.8-10.8)
[2017-02-11 06:07] LABS: ALT (SGPT) 201 U/L (8-55); AST (SGOT) 289 U/L (5-34); Albumin 2.1 g/dL (3.5-5.0); Alkaline Phosphatase 61 U/L (40-150); Anion Gap 10 mmol/L (10-20); BUN (Urea Nitrogen) 20 mg/dL (7.0-18.7); Bilirubin, Total 0.7 mg/dL (0.2-1.2); Calc. Creatinine Clearance 169 mL/min (70-130); Calcium 8.1 mg/dL (7.8-10.44); Carbon Dioxide 29 mmol/L (22-29); Chloride 94 mmol/L (98-107); Estimated GFR-MDRD Greater than 90; Globulin 1.9 g/dL (2.4-3.5); Glucose 83 mg/dL (70-105); Sodium 129 mmol/L (136-145)
[2017-02-11 06:20] LABS: CK (CPK) 5557 U/L (29-168)
--- NOTE | 2017-02-11 07:24 | PRG ---
DATE OF SERVICE: 02/11/2017 Progress note from a visit that occurred on 02/10. SUBJECTIVE: Ms. Sumner is feeling better, she is still with diffuse myalgias, no cough, no respirato ry symptoms, no diarrhea, no genitourinary symptoms. She has been afebrile. OBJECTIVE: VITAL SIGNS: Blood pressure and pulse normal. GENERAL: Awake, alert, and oriented. LUNGS: Clear. HEART: S1, S2, regular rate. ABDOMEN: Soft. Still with the weakness, but no focal weakness. LABORATORY DATA: White cell count down to 13.8, hemoglobin 13, platelets 289. CK is decreased to 73 00. EDMOND screen negative. ASSESSMENT AND DISCUSSION: History of gastric bypass and rhabdomyolysis with fever secondary to infl uenza A infection. Continue Tamiflu. Continue IV fluids for management of rhabdomyolysis.
[2017-02-11] MEDS ORDERED: Furosemide 40 MG/4 ML VIAL SLOW IVP SCH (08:00)
[2017-02-11] MEDS: Oseltamivir 75 MG CAP PO SCH ×2 (08:14→20:06)
[2017-02-11] MEDS: Enoxaparin Sodium 40 MG/0.4 ML SYRINGE SC SCH (08:14)
[2017-02-11] MEDS: Zinc Sulfate 220 MG CAP PO SCH (08:15)
--- NOTE | 2017-02-11 14:26 | PDOC.PN ---
- Subjective Encounter Start Date: 02/11/17 Encounter Start Time: 13:30 Patient seen and examined. No new complaints. No overnight events. Feels better. Sitting on chair - Objective MAR Reviewed: Yes Vital Signs & Weight: Vital Signs (12 hours) Temp Pulse Resp BP BP BP Pulse Ox 02/11/17 12:00 98.4 F 82 16 102/67 99 02/11/17 08:25 97.6 F 82 20 102/67 99 02/11/17 08:00 97.6 F 82 20 102/69 02/11/17 04:00 97.7 F 88 20 93/59 L 97 I&O: 02/10/17 02/11/17 02/12/17 06:59 06:59 06:59 Intake Total 1885 2368 480 Output Total 100 2250 1150 Balance 1785 118 -670 Result Diagrams: 02/11/17 05:10 02/11/17 05:10 Phys Exam - Physical Examination Constitutional: NAD HEENT: sclera anicteric Neurological: moves all 4 limbs Psychiatric: normal affect, A&O x 3 Dx/Plan - Plan DVT proph w/lovenox, DVT proph w/SCDs IMPRESSION: 1. Sepsis with acute organ dysfunction due to Influenza A - on Tamiflu 2. Rhabdomyolysis - CK improving 3. Lactic acidosis - improved 4. Hypothyroidism - on Levothyroxine 5. Abn LFTs prob due to sepsis/rhabdomyolysis - improving 6. h/o gastric bypass 7. Zinc deficiency - started on replacement PLAN: * On IV Lasix per Nephrology * AM labs including CK * Cont Tamiflu * Cont current meds as below * Cont PT * DC planning in AM if stable Review of Systems - Review of Systems Respiratory: negative: Cough, Dry, Shortness of Breath, Hemoptysis, SOB with Excertion, Pleuritic Pain, Sputum, Wheezing Cardiovascular: negative: chest pain, palpitations, orthopnea, paroxysmal nocturnal dyspnea, edema, light headedness - Medications/Allergies Allergies/Adverse Reactions: Allergies Allergy/AdvReac Type Severity Reaction Status Date / Time levofloxacin [From Levaquin] Allergy Verified 05/14/14 10:53 Medications: Current Medications Acetaminophen (Tylenol) 650 mg PO Q4H PRN PRN Reason: Headache/Fever or Pain Last Admin: 02/10/17 00:10 Dose: 650 mg Acetaminophen (Tylenol) 650 mg [place] Q4H PRN PRN Reason: Headache/Fever or Pain Bisacodyl (Dulcolax) 10 mg PO DAILYPRN PRN PRN Reason: Constipation Enoxaparin Sodium (Lovenox) 40 mg SC 0900 [facility] Last Admin: 02/11/17 08:14 Dose: 40 mg Furosemide (Lasix) 40 mg SLOW IVP 0600,1400 [facility] Last Admin: 02/11/17 13:19 Dose: 40 mg Levothyroxine Sodium (Synthroid) 200 mcg PO 0600 [facility] Last Admin: 02/11/17 05:11 Dose: 200 mcg Oseltamivir Phosphate (Tamiflu) 75 mg PO BID [facility] Stop: 02/12/17 09:01 Last Admin: 02/11/17 08:14 Dose: 75 mg Quetiapine Fumarate (Seroquel) 150 mg PO QPM [facility] Last Admin: 02/10/17 20:25 Dose: 150 mg Sodium Chloride (Flush - Normal Saline) 10 ml IVF Q12HR [facility] Last Admin: 02/11/17 08:15 Dose: 10 ml Sodium Chloride (Flush - Normal Saline) 10 ml IVF PRN PRN PRN Reason: Saline Flush Last Admin: 02/11/17 05:12 Dose: 10 ml Tramadol HCl (Ultram) 50 mg PO Q6H PRN PRN Reason: Pain Last Admin: 02/10/17 20:27 Dose: 50 mg Zinc Sulfate (Zinc Sulfate) 220 mg PO DAILY [facility] Last Admin: 02/11/17 08:15 Dose: 220 mg
[2017-02-11] MEDS: traMADol HCl 50 MG TAB PO PRN ×2 (14:57→20:06)
--- NOTE | 2017-02-11 16:04 | EKG ---
Test Reason : Blood Pressure : / mmHG Vent. Rate : 080 BPM Atrial Rate : 080 BPM P-R Int : 140 ms QRS Dur : 068 ms QT Int : 372 ms P-R-T Axes : 058 008 -09 degrees QTc Int : 429 ms Normal sinus rhythm Low voltage QRS Nonspecific T wave abnormality Abnormal ECG Confirmed by LEONILA NEWBY, ARCADIO Vee ([id number]), photo editor MATT UREÑA ([id number]) on 02/11/2017 4:04:07 PM Referred By: Confirmed By:ARCADIO KEEN MD
--- NOTE | 2017-02-11 23:29 | PRG ---
DATE OF SERVICE: 02/11/2017 SUBJECTIVE: The patient was seen and examined, I am not able to follow him. PHYSICAL EXAMINATION: VITAL SIGNS: Afebrile with temperature 98.4, pulse 82, respiratory rate 16, O2 sat 99%, blood pressu re 102/67. HEENT: Unremarkable. Moist oral mucosa. NECK: Supple. No conjunctival injection or icterus. EXTREMITIES: Still has some peripheral edema. CARDIOVASCULAR: First and second heart sounds were heard. IMPRESSION: Rhabdomyolysis in the context of flu. PLAN: 1. Continue with diuresis. 2. Further management to be dependent on the clinical course.
[2017-02-12] MEDS: Furosemide 40 MG/4 ML VIAL SLOW IVP SCH ×2 (05:45→14:47)
[2017-02-12] MEDS: Levothyroxine Sodium 100 MCG TAB PO SCH (05:46)
[2017-02-12] MEDS: traMADol HCl 50 MG TAB PO PRN ×2 (05:48→20:21)
[2017-02-12 06:27] LABS: Albumin 1.9 g/dL (3.5-5.0); Anion Gap 12 mmol/L (10-20); BUN (Urea Nitrogen) 19 mg/dL (7.0-18.7); BUN/Creatinine Ratio 29.69; Calc. Creatinine Clearance 171 mL/min (70-130); Carbon Dioxide 30 mmol/L (22-29); Chloride 93 mmol/L (98-107); Estimated GFR-MDRD Greater than 90; Glucose 90 mg/dL (70-105); Magnesium 1.8 mg/dL (1.6-2.6); Phosphorus 3.8 mg/dL (2.3-4.7); Potassium 3.5 mmol/L (3.5-5.1); Sodium 131 mmol/L (136-145)
[2017-02-12 06:39] LABS: CK (CPK) 4285 U/L (29-168)
[2017-02-12] MEDS: Zinc Sulfate 220 MG CAP PO SCH (08:45)
[2017-02-12] MEDS: Enoxaparin Sodium 40 MG/0.4 ML SYRINGE SC SCH (08:46)
[2017-02-12] MEDS: Oseltamivir 75 MG CAP PO SCH (09:19)
--- NOTE | 2017-02-12 16:47 | PDOC.PN ---
- Subjective Encounter Start Date: 02/12/17 Encounter Start Time: 16:45 Patient seen at bedside. No overnight events, no C/P, no SOB. - Objective MAR Reviewed: Yes Vital Signs & Weight: Vital Signs (12 hours) Temp Pulse Resp BP Pulse Ox 02/12/17 13:35 98.1 F 100 20 94/59 L 100 02/12/17 08:00 97.9 F 82 18 96/58 L 98 I&O: 02/11/17 02/12/17 02/13/17 06:59 06:59 06:59 Intake Total 2368 2414 360 Output Total 2250 2750 Balance 118 -336 360 Result Diagrams: 02/11/17 05:10 02/12/17 05:47 Phys Exam - Physical Examination Constitutional: NAD HEENT: moist MMs Neck: no JVD Respiratory: no rales Cardiovascular: no significant murmur Gastrointestinal: soft Musculoskeletal: edema present 3+ edema in LE B/L, 2+ edema in UE B/L Neurological: moves all 4 limbs Psychiatric: A&O x 3 Dx/Plan (1) Volume overload Code(s): E87.70 - FLUID OVERLOAD, UNSPECIFIED Status: Acute Qualifiers: Hypervolemia type: other Qualified Code(s): E87.79 - Other fluid overload (2) Rhabdomyolysis Code(s): M62.82 - RHABDOMYOLYSIS Status: Acute (3) Hypothyroidism Code(s): E03.9 - HYPOTHYROIDISM, UNSPECIFIED Status: Chronic - Plan cont current plan of care, plan discussed w/ family, PT/OT, social and human services assistant, out of bed/ambulate * Completed Course of Tamiflu. * Continue with Diuresis * Trend CK * Daily Labs
--- NOTE | 2017-02-12 23:18 | PRG ---
DATE OF SERVICE: 02/12/2017 SUBJECTIVE: The patient was seen and examined, seems to be feeling better, noted with the following vital signs. PHYSICAL EXAMINATION: VITAL SIGNS: Afebrile with temperature 97.9, pulse 80, respiratory rate of 18, O2 sat of 98% with a blood pressure 99/64. HEENT: Unremarkable with moist oral mucosa. No conjunctival injection or icterus. NECK: Supple. CARDIOVASCULAR: First and second heart sounds were heard. RESPIRATORY: Clear to auscultation. DIGESTIVE: Revealed a benign abdomen. EXTREMITIES: Showed some peripheral edema. LABORATORY INVESTIGATION: Showed a sodium of 131, creatine kinase of 4285. Input and output showed 2.4 liters in and 3 liters out. IMPRESSION: 1. Severe rhabdomyolysis, improving. 2. Hypervolemia responding to diuretics. PLAN: 1. We will continue current diuresis and consider transition, go back to oral diuretics in the next 24-hours. 2. Glover catheter needs to be discontinued latest by tomorrow. 3. Further management to be dependent on the clinical course.
[2017-02-13] MEDS: Levothyroxine Sodium 100 MCG TAB PO SCH (05:32)
[2017-02-13] MEDS: Furosemide 40 MG/4 ML VIAL SLOW IVP SCH (05:32)
[2017-02-13] MEDS: traMADol HCl 50 MG TAB PO PRN (05:32)
[2017-02-13 06:20] LABS: Albumin 2.1 g/dL (3.5-5.0); Anion Gap 10 mmol/L (10-20); BUN (Urea Nitrogen) 20 mg/dL (7.0-18.7); BUN/Creatinine Ratio 32.26; CK (CPK) 2672 U/L (29-168); Calc. Creatinine Clearance 177 mL/min (70-130); Calcium 7.9 mg/dL (7.8-10.44); Carbon Dioxide 31 mmol/L (22-29); Chloride 94 mmol/L (98-107); Estimated GFR-MDRD Greater than 90; Glucose 86 mg/dL (70-105); Magnesium 1.9 mg/dL (1.6-2.6); Phosphorus 3.8 mg/dL (2.3-4.7); Sodium 132 mmol/L (136-145)
[2017-02-13] MEDS: Enoxaparin Sodium 40 MG/0.4 ML SYRINGE SC SCH (08:12)
[2017-02-13] MEDS: Zinc Sulfate 220 MG CAP PO SCH (08:13)
[2017-02-13] MEDS ORDERED: Potassium Chloride 20 MEQ TAB PO SCH (10:00)
[2017-02-13] MEDS ORDERED: Polyethylene Glycol 3350 17 GM Packet PO PRN (10:41)
[2017-02-13] MEDS ORDERED: Polyethylene Glycol 3350 17 GM Packet PO SCH (10:45)
--- NOTE | 2017-02-13 10:47 | PDOC.PN ---
- Subjective Encounter Start Date: 02/13/17 Encounter Start Time: 09:45 Patient seen and examined. No new complaints. No overnight events - Objective MAR Reviewed: Yes Vital Signs & Weight: Vital Signs (12 hours) Temp Pulse Resp BP BP Pulse Ox 02/13/17 08:00 98.1 F 79 16 02/13/17 07:19 98.1 F 79 16 143/79 H 96 02/13/17 04:00 98.0 F 79 18 101/60 98 02/13/17 00:00 97.8 F 79 18 104/62 96 I&O: 02/12/17 02/13/17 02/14/17 06:59 06:59 06:59 Intake Total 2414 3104 Output Total 2750 4170 Balance -336 -1066 Result Diagrams: 02/11/17 05:10 02/13/17 05:36 Phys Exam - Physical Examination Constitutional: NAD Respiratory: no wheezing Gastrointestinal: soft, positive bowel sounds Musculoskeletal: edema present Neurological: moves all 4 limbs Psychiatric: normal affect, A&O x 3 Dx/Plan - Plan DVT proph w/lovenox, DVT proph w/SCDs IMPRESSION: 1. Sepsis with acute organ dysfunction due to Influenza A - completed Tamiflu 2. Rhabdomyolysis - CK improving 3. Hypokalemia/Hyponatremia 4. Hypothyroidism - on Levothyroxine 5. Abn LFTs prob due to sepsis/rhabdomyolysis - improving 6. h/o gastric bypass 7. Zinc deficiency - started on replacement 8. Lactic acidosis - improved PLAN: * Change Lasix to PO * DC Glover * Miralax * Ambulate * DC in AM if stable * AM labs including CK * Replace Potassium Review of Systems - Review of Systems Respiratory: negative: Cough, Dry, Shortness of Breath, Hemoptysis, SOB with Excertion, Pleuritic Pain, Sputum, Wheezing Cardiovascular: negative: chest pain, palpitations, orthopnea, paroxysmal nocturnal dyspnea, edema, light headedness - Medications/Allergies Allergies/Adverse Reactions: Allergies Allergy/AdvReac Type Severity Reaction Status Date / Time levofloxacin [From Levaquin] Allergy Verified 05/14/14 10:53 Medications: Current Medications Acetaminophen (Tylenol) 650 mg PO Q4H PRN PRN Reason: Headache/Fever or Pain Last Admin: 02/10/17 00:10 Dose: 650 mg Acetaminophen (Tylenol) 650 mg [place] Q4H PRN PRN Reason: Headache/Fever or Pain Bisacodyl (Dulcolax) 10 mg PO DAILYPRN PRN PRN Reason: Constipation Docusate Sodium (Colace) 100 mg PO BID [facility] Enoxaparin Sodium (Lovenox) 40 mg SC 0900 [facility] Last Admin: 02/13/17 08:12 Dose: 40 mg Furosemide (Lasix) 40 mg PO 0900,1400 [facility] Levothyroxine Sodium (Synthroid) 200 mcg PO 0600 [facility] Last Admin: 02/13/17 05:32 Dose: 200 mcg Polyethylene Glycol (Miralax) 17 gm PO ONE [facility] Polyethylene Glycol (Miralax) 17 gm PO DAILY PRN PRN Reason: Constipation Potassium Chloride (K-Dur) 40 meq PO NOW [facility] Stop: 02/13/17 12:00 Last Admin: 02/13/17 10:01 Dose: 40 meq Potassium Chloride (K-Dur) 20 meq PO TID-WM [facility] Stop: 02/14/17 08:01 Quetiapine Fumarate (Seroquel) 150 mg PO QPM [facility] Last Admin: 02/12/17 20:21 Dose: 150 mg Sodium Chloride (Flush - Normal Saline) 10 ml IVF Q12HR [facility] Last Admin: 02/13/17 08:13 Dose: 10 ml Sodium Chloride (Flush - Normal Saline) 10 ml IVF PRN PRN PRN Reason: Saline Flush Last Admin: 02/13/17 05:32 Dose: 10 ml Tramadol HCl (Ultram) 50 mg PO Q6H PRN PRN Reason: Pain Last Admin: 02/13/17 05:32 Dose: 50 mg Zinc Sulfate (Zinc Sulfate) 220 mg PO DAILY [facility] Last Admin: 02/13/17 08:13 Dose: 220 mg
[2017-02-13] MEDS: Potassium Chloride 20 MEQ TAB PO SCH ×2 (13:44→17:09)
[2017-02-13] MEDS: Furosemide 40 MG TAB PO SCH (13:45)
[2017-02-13] MEDS: Docusate 100 MG CAP PO SCH (22:02)
[2017-02-14] MEDS: Levothyroxine Sodium 100 MCG TAB PO SCH (05:47)
[2017-02-14 07:02] LABS: Anion Gap 8 mmol/L (10-20); BUN (Urea Nitrogen) 17 mg/dL (7.0-18.7); CK (CPK) 1992 U/L (29-168); Calc. Creatinine Clearance 169 mL/min (70-130); Calcium 8.1 mg/dL (7.8-10.44); Carbon Dioxide 33 mmol/L (22-29); Chloride 96 mmol/L (98-107); Estimated GFR-MDRD Greater than 90; Glucose 114 mg/dL (70-105); Potassium 3.4 mmol/L (3.5-5.1); Sodium 134 mmol/L (136-145)
[2017-02-14] MEDS: Enoxaparin Sodium 40 MG/0.4 ML SYRINGE SC SCH ×2 (08:20→08:23)
[2017-02-14] MEDS: Potassium Chloride 20 MEQ TAB PO SCH (08:20)
[2017-02-14] MEDS: Zinc Sulfate 220 MG CAP PO SCH (08:20)
[2017-02-14] MEDS: Docusate 100 MG CAP PO SCH ×2 (08:20→20:43)
[2017-02-14] MEDS ORDERED: Potassium Chloride 20 MEQ TAB PO SCH (10:15)
[2017-02-14] MEDS: Furosemide 40 MG TAB PO SCH (10:24)
--- NOTE | 2017-02-14 13:30 | ULT ---
LEFT UPPER EXTREMITY VENOUS DOPPLER ULTRASOUND: 02/14/2017 HISTORY: Edema. Swelling. Status post PICC removal. COMPARISON: None. TECHNIQUE: Multiplanar [place] toro-scale sonographic imaging of the venous structures of the left upper extremity obtai gerald with color-flow and spectral analysis. FINDINGS: Left internal jugular vein and left subclavian vein appear patent. The left axillary vein is only partially compressible and demonstrates no significant blood flow, ag dence of deep venous thrombosis of the left axillary vein. The left basilic vein is partially compre ssible, consistent with venous clot. The cephalic vein is patent. The left radial and ulnar veins a re patent, as is the left brachial vein. IMPRESSION: There is clot within the left basilic vein, extending into the left axillary vein, consistent with le ft upper extremity axillary deep venous thrombosis. Portions of the left axillary deep venous thromb osis appear occlusive. The results were called to the covering nurse (Dominique) at approximately 12:30 p.m. on 02/14/2017. CODE CR POS: IDA
--- NOTE | 2017-02-14 13:56 | PDOC.PN ---
- Subjective Encounter Start Date: 02/14/17 Encounter Start Time: 13:00 Patient seen and examined. LUE swollen after PICC line removal. Doppler positive for DVT. No overnight events - Objective MAR Reviewed: Yes Vital Signs & Weight: Vital Signs (12 hours) Temp Pulse Resp BP BP Pulse Ox 02/14/17 11:11 98.1 F 78 16 100/66 100 02/14/17 08:00 98.2 F 77 16 02/14/17 07:48 98.2 F 77 16 92/54 L 99 02/14/17 05:17 98.1 F 76 20 107/61 99 I&O: 02/13/17 02/14/17 02/15/17 06:59 06:59 06:59 Intake Total 3104 2400 Output Total 4170 2700 Balance -1066 -300 Result Diagrams: 02/11/17 05:10 02/14/17 06:05 Phys Exam - Physical Examination Constitutional: NAD Respiratory: no wheezing, no rhonchi Cardiovascular: RRR, no rub Gastrointestinal: soft, non-tender, positive bowel sounds Musculoskeletal: edema present (generalized) Neurological: moves all 4 limbs Dx/Plan - Plan DVT proph w/lovenox, DVT proph w/SCDs IMPRESSION: 1. LUE DVT - probably due to PICC line. Patient was on Lovenox 40 mg daily. 2. Sepsis with acute organ dysfunction due to Influenza A - completed Tamiflu 3. Rhabdomyolysis - CK improving 4. Hypokalemia/Hyponatremia 5. Hypothyroidism - on Levothyroxine 6. Abn LFTs prob due to sepsis/rhabdomyolysis - improving 7. h/o gastric bypass/Zinc deficiency - started on replacement/Lactic acidosis - improved PLAN: * Start Eliquis - risk discussed - Patient stated understanding. Will give her 5 mg Eliquis since she received Lovenox 40 mg this AM. * Cont PO Lasix * Ambulate * DC in AM if stable * AM labs including CK * Replace Potassium * Change Lasix to daily Review of Systems - Review of Systems Respiratory: negative: Cough, Dry, Shortness of Breath, Hemoptysis, SOB with Excertion, Pleuritic Pain, Sputum, Wheezing Cardiovascular: negative: chest pain, palpitations, orthopnea, paroxysmal nocturnal dyspnea, edema, light headedness - Medications/Allergies Allergies/Adverse Reactions: Allergies Allergy/AdvReac Type Severity Reaction Status Date / Time levofloxacin [From [facility]] Allergy Verified 05/14/14 10:53 Medications: Current Medications Acetaminophen (Tylenol) 650 mg PO Q4H PRN PRN Reason: Headache/Fever or Pain Last Admin: 02/10/17 00:10 Dose: 650 mg Acetaminophen (Tylenol) 650 mg AR Q4H PRN PRN Reason: Headache/Fever or Pain Apixaban (Eliquis) 10 mg PO BID [facility] Apixaban (Eliquis) 5 mg PO ONE [facility] Bisacodyl (Dulcolax) 10 mg PO DAILYPRN PRN PRN Reason: Constipation Docusate Sodium (Colace) 100 mg PO BID [facility] Last Admin: 02/14/17 08:20 Dose: 100 mg Furosemide (Lasix) 40 mg PO 0900,1400 [facility] Last Admin: 02/14/17 10:24 Dose: 40 mg Levothyroxine Sodium (Synthroid) 200 mcg PO 0600 [facility] Last Admin: 02/14/17 05:47 Dose: 200 mcg Polyethylene Glycol (Miralax) 17 gm PO DAILY PRN PRN Reason: Constipation Quetiapine Fumarate (Seroquel) 150 mg PO QPM [facility] Last Admin: 02/13/17 22:02 Dose: 150 mg Sodium Chloride (Flush - Normal Saline) 10 ml IVF Q12HR [facility] Last Admin: 02/14/17 08:20 Dose: Not Given Sodium Chloride (Flush - Normal Saline) 10 ml IVF PRN PRN PRN Reason: Saline Flush Last Admin: 02/13/17 05:32 Dose: 10 ml Tramadol HCl (Ultram) 50 mg PO Q6H PRN PRN Reason: Pain Last Admin: 02/13/17 05:32 Dose: 50 mg Zinc Sulfate (Zinc Sulfate) 220 mg PO DAILY [facility] Last Admin: 02/14/17 08:20 Dose: 220 mg
[2017-02-14] MEDS ORDERED: Apixaban 5 MG TAB PO SCH (14:00)
[2017-02-14] MEDS ORDERED: Ondansetron ODT 4 MG TAB PO PRN (18:37)
--- NOTE | 2017-02-14 20:42 | PRG ---
DATE OF SERVICE: 02/14/2017 SUBJECTIVE: Lianna Sumner was seen and examined with no new complaint except the swollen up extrem ities, status post PICC line. Noted with the following vital signs. OBJECTIVE: VITAL SIGNS: Afebrile with temperature 98.1, pulse 78, respiratory rate of 16, O2 saturation of 100% with a blood pressure of 100/66. HEENT: Unremarkable with moist oral mucosa. No conjunctival injection or icterus. NECK: Supple. CARDIOVASCULAR SYSTEM: First and second heart sounds were heard. RESPIRATORY SYSTEM: Clear to auscultation. DIGESTIVE SYSTEM: Revealed a benign abdomen with positive bowel sounds. EXTREMITIES: No peripheral edema. LABORATORY INVESTIGATION: Showed a CPK down to 1992, potassium 3.4. IMPRESSION: 1. Rhabdomyolysis, which is improving. 2. Mild hypokalemia. 3. Deep venous thrombosis. PLAN: 1. Replete potassium. 2. Continue other renal supportive measures. 3. Outpatient followup status post discharge recommended.
[2017-02-14] MEDS: Apixaban 5 MG TAB PO SCH (20:43)
[2017-02-15 04:42] LABS: #Eosinphils 0.1 thou/uL (0.0-0.7); #Monocytes 0.7 thou/uL (0.11-0.59); #Neutrophils 3.6 thou/uL (1.40-6.50); %Basophils 0.2 % (0.0-1.0); %Eosinophils 2.2 % (0.0-10.0); %Lymphocytes 31.3 % (21.0-51.0); %Monocytes 10.8 % (0.0-10.0); %Neutrophils 55.6 % (42.0-75.0); Hemoglobin 10.5 g/dL (12.0-16.0); Mean Corpuscular Hemoglobin 29.9 pg (27.0-31.0); Mean Corpuscular Volume 87.9 fl (81.0-99.0); Mean Platelet Volume 6.5 fL (7.4-10.4); Platelet Count 258 thou/uL (130-400); RBC Distribution Width 15.1 % (11.5-14.5); Red Blood Cell (RBC) Count 3.52 mill/uL (4.20-5.40); White Blood Cell (WBC) Count 6.5 thou/uL (4.8-10.8)
[2017-02-15 05:20] LABS: ALT (SGPT) 125 U/L (8-55); AST (SGOT) 129 U/L (5-34); Alkaline Phosphatase 67 U/L (40-150); Anion Gap 9 mmol/L (10-20); BUN (Urea Nitrogen) 14 mg/dL (7.0-18.7); Bilirubin, Total 0.6 mg/dL (0.2-1.2); CK (CPK) 1188 U/L (29-168); Calc. Creatinine Clearance 183 mL/min (70-130); Carbon Dioxide 32 mmol/L (22-29); Chloride 100 mmol/L (98-107); Estimated GFR-MDRD Greater than 90; Glucose 85 mg/dL (70-105); Potassium 3.8 mmol/L (3.5-5.1); Sodium 137 mmol/L (136-145)
[2017-02-15] MEDS: Levothyroxine Sodium 100 MCG TAB PO SCH (05:50)
[2017-02-15] MEDS: Furosemide 40 MG TAB PO SCH (08:07)
[2017-02-15] MEDS: Apixaban 5 MG TAB PO SCH ×2 (08:08→20:28)
[2017-02-15] MEDS: Potassium Chloride 20 MEQ TAB PO SCH (08:08)
[2017-02-15] MEDS: Zinc Sulfate 220 MG CAP PO SCH (08:09)
[2017-02-15] MEDS: Docusate 100 MG CAP PO SCH ×2 (08:09→20:28)
--- NOTE | 2017-02-15 18:29 | PDOC.PN ---
- Subjective Encounter Start Date: 02/15/17 Encounter Start Time: 09:30 Patient seen and examined. No new complaints. No overnight events - Objective MAR Reviewed: Yes Vital Signs & Weight: Vital Signs (12 hours) Temp Pulse Resp BP Pulse Ox 02/15/17 08:00 97.9 F 67 20 121/77 96 I&O: 02/14/17 02/15/17 02/16/17 06:59 06:59 06:59 Intake Total 2400 1600 1200 Output Total 2700 Balance -300 1600 1200 Result Diagrams: 02/15/17 03:34 02/15/17 03:34 Phys Exam - Physical Examination Constitutional: NAD Respiratory: no wheezing, no rhonchi Cardiovascular: RRR, no rub Gastrointestinal: soft, non-tender, positive bowel sounds Musculoskeletal: no edema Neurological: moves all 4 limbs Psychiatric: A&O x 3 Dx/Plan - Plan IMPRESSION: 1. LUE DVT - probably due to PICC line. (Patient was on Lovenox 40 mg daily) 2. Sepsis with acute organ dysfunction due to Influenza A - completed Tamiflu 3. Rhabdomyolysis - CK improving 4. Hypokalemia/Hyponatremia 5. Hypothyroidism - on Levothyroxine 6. Abn LFTs prob due to sepsis/rhabdomyolysis - improving 7. h/o gastric bypass/Zinc deficiency - started on replacement/Lactic acidosis - improved PLAN: * Cont Eliquis * Will monitor overnight due to drop in HH 12.8 to 10.5 * Cont PO Lasix/Potassium * Ambulate * DC in AM if stable * AM labs including CK Laboratory Tests 02/13/17 02/15/17 05:36 03:34 Creatine Kinase 2672 H 1188 H Laboratory Tests 02/11/17 02/15/17 05:10 03:34 Hgb 12.8 10.5 L Review of Systems - Review of Systems Respiratory: negative: Cough, Dry, Shortness of Breath, Hemoptysis, SOB with Excertion, Pleuritic Pain, Sputum, Wheezing Cardiovascular: negative: chest pain, palpitations, orthopnea, paroxysmal nocturnal dyspnea, edema, light headedness - Medications/Allergies Allergies/Adverse Reactions: Allergies Allergy/AdvReac Type Severity Reaction Status Date / Time levofloxacin [From Levaquin] Allergy Verified 05/14/14 10:53 Medications: Current Medications Acetaminophen (Tylenol) 650 mg PO Q4H PRN PRN Reason: Headache/Fever or Pain Last Admin: 02/10/17 00:10 Dose: 650 mg Acetaminophen (Tylenol) 650 mg MA Q4H PRN PRN Reason: Headache/Fever or Pain Apixaban (Eliquis) 10 mg PO BID [facility] Last Admin: 02/15/17 08:08 Dose: 10 mg Bisacodyl (Dulcolax) 10 mg PO DAILYPRN PRN PRN Reason: Constipation Docusate Sodium (Colace) 100 mg PO BID [facility] Last Admin: 02/15/17 08:09 Dose: Not Given Furosemide (Lasix) 40 mg PO DAILY-AC [facility] Last Admin: 02/15/17 08:07 Dose: 40 mg Levothyroxine Sodium (Synthroid) 200 mcg PO 0600 [facility] Last Admin: 02/15/17 05:50 Dose: 200 mcg Ondansetron HCl (Zofran Odt) 4 mg PO Q6H PRN PRN Reason: Nausea/Vomiting Polyethylene Glycol (Miralax) 17 gm PO DAILY PRN PRN Reason: Constipation Potassium Chloride (K-Dur) 40 meq PO QAM-WM [facility] Last Admin: 02/15/17 08:08 Dose: 40 meq Quetiapine Fumarate (Seroquel) 150 mg PO QPM [facility] Last Admin: 02/14/17 20:43 Dose: 150 mg Sodium Chloride (Flush - Normal Saline) 10 ml IVF Q12HR [facility] Last Admin: 02/15/17 08:09 Dose: Not Given Sodium Chloride (Flush - Normal Saline) 10 ml IVF PRN PRN PRN Reason: Saline Flush Last Admin: 02/13/17 05:32 Dose: 10 ml Tramadol HCl (Ultram) 50 mg PO Q6H PRN PRN Reason: Pain Last Admin: 02/13/17 05:32 Dose: 50 mg Zinc Sulfate (Zinc Sulfate) 220 mg PO DAILY [facility] Last Admin: 02/15/17 08:09 Dose: 220 mg
--- NOTE | 2017-02-16 01:52 | PRG ---
DATE OF SERVICE: 02/15/2017 SUBJECTIVE: The patient was seen and examined, seems to be doing very well. PHYSICAL EXAMINATION: VITAL SIGNS: Hemodynamically stable, afebrile. HEENT: Unremarkable. Moist oral mucosa. Neck was supple. No conjunctival injection or icterus. CARDIOVASCULAR: First and second heart sounds were heard. RESPIRATORY: Clear to auscultation. DIGESTIVE: Revealed a benign abdomen with positive bowel sounds. EXTREMITIES: No peripheral edema. SKIN: No new gross rash. LYMPHATICS: No peripheral lymphadenopathy. IMPRESSION: 1. Severe rhabdomyolysis, which seems to have improved, quit appreciably. 2. Hypokalemia. 3. Anemia. PLAN: 1. From the renal standpoint, the patient is good for discharge, but it seems that the primary team is monitoring the patient's hemoglobin otherwise good for discharge. 2. Further management to be dependent on the clinical course.
[2017-02-16 04:36] LABS: #Eosinphils 0.2 thou/uL (0.0-0.7); #Lymphocytes 1.8 thou/uL (1.20-3.40); #Monocytes 0.6 thou/uL (0.11-0.59); #Neutrophils 3.2 thou/uL (1.40-6.50); %Basophils 0.4 % (0.0-1.0); %Eosinophils 2.7 % (0.0-10.0); %Lymphocytes 31.6 % (21.0-51.0); %Neutrophils 55.3 % (42.0-75.0); Hemoglobin 10.7 g/dL (12.0-16.0); Mean Corpuscular Volume 88.1 fl (81.0-99.0); Mean Platelet Volume 6.4 fL (7.4-10.4); Platelet Count 256 thou/uL (130-400); RBC Distribution Width 15.2 % (11.5-14.5); Red Blood Cell (RBC) Count 3.57 mill/uL (4.20-5.40); White Blood Cell (WBC) Count 5.7 thou/uL (4.8-10.8)
[2017-02-16 04:49] LABS: Anion Gap 9 mmol/L (10-20); BUN (Urea Nitrogen) 14 mg/dL (7.0-18.7); CK (CPK) 779 U/L (29-168); Calc. Creatinine Clearance 183 mL/min (70-130); Carbon Dioxide 29 mmol/L (22-29); Chloride 102 mmol/L (98-107); Estimated GFR-MDRD Greater than 90; Glucose 80 mg/dL (70-105); Potassium 4.1 mmol/L (3.5-5.1); Sodium 136 mmol/L (136-145)
[2017-02-16] MEDS: Levothyroxine Sodium 100 MCG TAB PO SCH (05:48)
[2017-02-16] MEDS: Potassium Chloride 20 MEQ TAB PO SCH (08:26)
[2017-02-16] MEDS: Furosemide 40 MG TAB PO SCH (08:27)
[2017-02-16] MEDS: Apixaban 5 MG TAB PO SCH (08:28)
[2017-02-16] MEDS: Zinc Sulfate 220 MG CAP PO SCH (08:29)
[2017-02-16] MEDS: Docusate 100 MG CAP PO SCH (08:29)
[2017-02-16 09:00] VITALS: BP 109/66; TEMP 98.2
--- NOTE | 2017-02-16 14:49 | DIS ---
DATE OF ADMISSION: 02/05/2017 DATE OF DISCHARGE: 02/16/2017 DISCHARGE DISPOSITION: Home. FOLLOWUP: 1. Follow up with primary care physician, Dr. Wesley in 1 week. 2. Follow up with Dr. Mueller in 2 weeks. DISCHARGE MEDICATIONS: 1. Eliquis 10 mg twice daily for 7 doses, then 5 mg twice a day. 2. Lasix 20 mg b.i.d. with potassium 20 mEq daily for one week. 3. Levothyroxine 200 mcg daily. 4. Seroquel 150 mg q.p.m. 5. Zinc sulfate [id number] daily. INPATIENT CONSULTANTS: 1. Nephrology, Dr. Mueller. 2. Infectious Disease, Dr. Blakely. The patient was seen and examined on the day of discharge. Denies any new complaints. No chest pain , shortness of breath, fevers, or chills reported. The patient is ambulating in the hallway. BRIEF HOSPITAL COURSE: The patient is a 46-year-old female, who presented to the hospital on with generalized weakness and body aches. Please refer to the history and physical dated for further details. The patient was admitted to the hospital with a diagnosis of rhabdomyolysis. The CK on admission was 17,500 with a lactic acid of 4.2. She was started on IV fluids. Her maximum CK this admission was 33,914. CK on the day of discharge is 779. Due to significant edema, she required Lasix later on. Due to worsening lactic acid, she underwent a respiratory viral PCR that was positive for influenza A . She was started on Tamiflu on 02/07/2017. She has completed Tamiflu course. Her flu symptoms hav e resolved. Generalized body ache is gradually improving. The patient had a PICC line placed on 02/07/2017 due to poor IV access. When the PICC line was remov ed on 02/14/2017, she had significant swelling noted. Left upper extremity ultrasound was positive f or DVT involving the left basilic vein extending to the left axillary vein. She has been started on Eliquis. The risk associated with Eliquis has been discussed with the patient and the family. They stated understanding. Plan of care was discussed with the patient and the family in detail. She sta bharati understanding. FINAL DIAGNOSES: 1. Sepsis with acute organ dysfunction secondary to influenza A. The patient completed Tamiflu. 2. Rhabdomyolysis secondary to influenza A, resolved. 3. Left upper extremity deep venous thrombosis secondary to PICC line. The patient has been started on Eliquis. Please note that the patient was on Lovenox 40 mg on a daily basis during this hospital stay. 4. Hyponatremia 5. Hypokalemia. 6. Hypothyroidism. 7. Abnormal liver function tests probably secondary to sepsis/rhabdomyolysis, improving. 8. History of gastric bypass. 9. Zinc deficiency. 10. Lactic acidosis. 11. Obesity with a BMI of 34.8. Plan of care was discussed with the patient. She stated understanding.
== END 2017-02-16 14:39 | disposition home or self-care (01) | DRG 872 ==
LOC: ERS 16:33 → 3SE 23:55 → IMCU/EMU 02-07 18:24 → T4-B 02-08 17:45
PROVIDERS: ADMIT Internal Medicine; ATTEND Internal Medicine
PROC: 02H633Z Insertion of Infusion Device into Right Atrium, Percutaneous Approach (ICD-10-PCS; principal; 2017-02-07)
DX: A41.9 Sepsis, unspecified organism (principal); E87.2 Acidosis; I82.622 Acute embolism and thrombosis of deep veins of left upper extremity; M62.82 Rhabdomyolysis; E87.1 Hypo-osmolality and hyponatremia; E88.09 Other disorders of plasma-protein metabolism, not elsewhere classified; N39.0 Urinary tract infection, site not specified; R65.20 Severe sepsis without septic shock; J11.1 Influenza due to unidentified influenza virus with other respiratory manifestations; E87.6 Hypokalemia; D64.9 Anemia, unspecified; Z98.84 Bariatric surgery status; E03.9 Hypothyroidism, unspecified; E66.9 Obesity, unspecified; Z68.34 Body mass index [BMI] 34.0-34.9, adult; D50.9 Iron deficiency anemia, unspecified; F32.9 Major depressive disorder, single episode, unspecified
CPT/HCPCS: 36415; 36569; 71010; 80048; 80053; 80069; 80076; 80306; 81003; 81015; 81025; 82525; 82550; 83605; 83735; 84100; 84425; 84443; 84550; 84630; 85007; 85025; 85027; 86038; 87040; 87086; 87633; 87798; 93005; 93010; 96361; 96365; 96367; 96374; 96375; A4216; C1751; G8978-GP-CM; G8979-GP-CK; J0696; J1650; J1885; J1940; J2270; J2405; J3370; J7042; J7050; J7070

== ENCOUNTER 2017-07-31 11:54 | Outpatient (CLI) | payer BC ==
[2017-07-31 12:33] LABS: #Basophils 0.1 thou/uL (0.0-0.2); #Eosinphils 0.1 thou/uL (0.0-0.7); #Lymphocytes 1.8 thou/uL (1.20-3.40); #Monocytes 0.5 thou/uL (0.11-0.59); #Neutrophils 3.2 thou/uL (1.40-6.50); %Basophils 1.1 % (0.0-1.0); %Eosinophils 1.1 % (0.0-10.0); %Lymphocytes 31.5 % (21.0-51.0); %Monocytes 8.8 % (0.0-10.0); %Neutrophils 57.5 % (42.0-75.0); Mean Corpuscular HGB CONC 32.2 g/dL (32.0-36.0); Mean Corpuscular Hemoglobin 24.8 pg (27.0-31.0); Mean Corpuscular Volume 76.9 fL (78.0-98.0); Mean Platelet Volume 7.6 fL (7.4-10.4); Platelet Count 246 thou/uL (130-400); RBC Distribution Width 14.1 % (11.5-14.5); Red Blood Cell (RBC) Count 4.85 mill/uL (4.20-5.40); White Blood Cell (WBC) Count 5.6 thou/uL (4.8-10.8)
[2017-07-31 13:00] LABS: Anion Gap 8 mmol/L (10-20); BUN (Urea Nitrogen) 14 mg/dL (7.0-18.7); Calc. Creatinine Clearance 0 mL/min (70-130); Calcium 8.8 mg/dL (7.8-10.44); Carbon Dioxide 24 mmol/L (22-29); Chloride 108 mmol/L (98-107); Estimated GFR-MDRD 69; Glucose 61 mg/dL (70-105); Potassium 3.7 mmol/L (3.5-5.1); Sodium 136 mmol/L (136-145)
[2017-07-31 13:03] LABS: BHCG - Serum Negative (NEGATIVE); Pregs Control Background? CLEAR/WHITE (CLR/WHITE); Pregs Control Bar Appear? YES (CONTROL BAR)
== END 2017-07-31 11:55 | disposition home or self-care (01) ==
LOC: LABBT 11:54
PROVIDERS: ATTEND Orthopaedic Surgery Hand Surgery
DX: Z01.812 Encounter for preprocedural laboratory examination (principal); M18.12 Unilateral primary osteoarthritis of first carpometacarpal joint, left hand
CPT/HCPCS: 80048; 84703; 85025; 93005; 93010

== ENCOUNTER 2017-08-01 08:04 | Day surgery (SDC) | payer BC ==
[2017-07-31 12:28] VITALS: BMI 31.6
[2017-08-01] MEDS ORDERED: CEFAZOLIN/Water 2 GM/20 ML SYRINGE ONE (08:18)
[2017-08-01] MEDS ORDERED: Fentanyl 100 MCG/2 ML VIAL ONE (10:28)
[2017-08-01] MEDS ORDERED: Betamet Acet/Betamet Na Ph 30 MG/5 ML VIAL ONE (10:29)
[2017-08-01] MEDS ORDERED: Bacitracin Zinc Ointment 30 gm TUBE ONE (10:29)
[2017-08-01] MEDS ORDERED: Bupivacaine PF 0.5% 30 ML VIAL ONE (10:29)
[2017-08-01] MEDS ORDERED: Sodium Chloride 0.9% 10 ML ONE (10:29)
[2017-08-01] MEDS ORDERED: Midazolam HCl 2 mg/2 ml Vial ONE (10:36)
[2017-08-01] MEDS ORDERED: Ketorolac Tromethamine 30 MG/ML VIAL ONE ×2 (12:31→14:57)
[2017-08-01] MEDS ORDERED: Dexamethasone 20 MG/5 ML VIAL ONE (12:31)
[2017-08-01] MEDS ORDERED: PROPOFOL 200 MG/20 ML VIAL ONE (12:31)
[2017-08-01] MEDS ORDERED: Lidocaine 1% PF 5 ML VIAL ONE (12:31)
[2017-08-01] MEDS ORDERED: Ondansetron HCl/PF 4 MG/2 ML Vial ONE (12:31)
--- NOTE | 2017-08-01 13:41 | RAD ---
INTRAOPERATIVE IMAGING OF THE LEFT WRIST: Date: 08-01-17 Comparison: None. History: ORIF. FINDINGS: Five intraoperative images are provided. The images demonstrate a percutaneous pin overlying the base of the first and second metacarpals on image 4 of 5. Initial image demonstrates retractor overlying base of first metacarpal and cutaneous pin overlying distal carpal laterally. IMPRESSION: Intraoperative imaging as above. POS: CHELA
--- NOTE | 2017-08-01 14:19 | OP ---
DATE OF PROCEDURE: 08/01/2017 PREOPERATIVE DIAGNOSES: Left thumb severe osteoarthritis carpometacarpal joint. Findings over 50% c hondral loss on the trapezium and 60% chondral loss on the base of the thumb, down to bone with stret ch of the intermetatarsal ligament at the left thumb found today. SURGEON: Daryl Wang M.D. 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 ESTIMATED BLOOD LOSS: 10 mL. INJECTABLES: 30 mL of 0.5% Marcaine with 10 split with 5 mL each of the harvest incisions and 20 mL total at the primary thumb incision. PROCEDURE PERFORMED: 1. Left thumb excision of trapezium. 2. Left thumb carpometacarpal joint ligament replacing tendon interposition arthroplasty. TOURNIQUET TIME: Greater than 80 minutes. FINDINGS: Chondral loss as listed above. DESCRIPTION OF PROCEDURE: After successful general LMA technique, the limb was prepped and draped. The patient had the area confirmed via timeout. It was the appropriate site. We outlined the TigerS tick incision base of the palmar and dorsal skin junction at the base of the left thumb CMC as well a s 2 harvest incisions. The limb was exsanguinated, tourniquet inflated to 250 mmHg pressure. We the n gave the Marcaine as described in "Marcaine above". We made a curvilinear incision sparing all the branches of the superficial radial nerve through the s kin, then incised the fascia, holding the thenar muscles down to bone and made 1 large flap. We imme diately saw the joint and made a longitudinal incision in the joint and used 2 separate 3-0 Vicryls t o identify joint capsule to help retract the area. We then freed the trapezium, placed a 6.2 K-wire threaded and confirmed the radiographs of trapezium. We then identified the thick fascial band and c apsular cover over the first carpi radialis, protected tendon, released its incisural and retracted i t free and protected it. We repaired the joint and then lifted out the trapezium. The joint capsule in the deep ulna and we placed 2 heavy 3-0 Prolenes with sutures to later make the anchovy. We now rotated the thumb into the plane of the metacarpal and cleaned off the base, and drilled a 2.5 drill hole in a near anatomic position in frontal and sagittal plane, then a 3-5 over this too. We then elevated the edges to make it about 4 mm wide to harvest and passed the flexor carpi radialis te ndon. Using standard techniques, we harvested the flexor carpi radialis tendon through 2 separate surgical incisions. We brought into the wrist. We then used a 4-0 Vicryl to reduce this profile, we irrigate d out the area of the thumb and then passed the tendon. We then secured it x3 sites to the bone and 4 sites to the bone and 2 to the abductor tendons before then securing it directly underneath the res ected osteophytes of the base of the thumb metacarpal and then weaved in a classic anchovy with Maco needles and 3-0 Prolene. It was tied appropriate to the joint capsule deep and ulnar. The patient then had the tourniquet deflated. Hemostasis obtained. We had placed the K-wire in befo re securing it and it was now cut at the level of the skin and bent. We then closed the donor site o nce hemostasis was obtained with a running 4-0 Monocryl subcutaneous and 4-0 nylon for the epidermal closure. The same technique was used at the thumb except for before that we approximated the fascia with 0 Vicryl. The patient then left the operating room without evidence of anesthetic or operative complication.
[2017-08-01] MEDS ORDERED: Promethazine HCl 25 MG/ML VIAL ONE (14:29)
== END 2017-08-01 15:59 | disposition home or self-care (01) ==
LOC: SDC 08:04
PROVIDERS: ATTEND Orthopaedic Surgery Hand Surgery
PROC: 0RQT0ZZ Repair Left Carpometacarpal Joint, Open Approach (ICD-10-PCS; principal; 2017-08-01)
DX: M18.12 Unilateral primary osteoarthritis of first carpometacarpal joint, left hand (principal); Z79.899 Other long term (current) drug therapy
CPT/HCPCS: 76001; 96374; 96375; A4216; J0702; J1885; J2250; J2550; J3010; J3490; S0020

== ENCOUNTER 2017-10-18 10:58 | Outpatient (CLI) | payer BC ==
--- NOTE | 2017-10-18 12:04 | ULT ---
THYROID ULTRASOUND: 10/18/2017 HISTORY: Hypothyroidism. FINDINGS: The thyroid gland demonstrates diffuse heterogeneity without a discrete measurable nodule identified. The thyroid isthmus is normal in AP dimensions, measuring 0.2 cm. The right lobe of the thyroid gl and measures 2.8 cm x 0.8 cm x 1.4 cm, with the left lobe measuring 2.8 cm x 0.9 cm x 1 cm. IMPRESSION: Generalized heterogeneity of the thyroid gland without a discrete thyroid nodule seen. POS: IDA
== END 2017-10-18 10:59 | disposition home or self-care (01) ==
LOC: SCSULT 10:58
PROVIDERS: ATTEND Family Medicine
DX: E03.9 Hypothyroidism, unspecified (principal); E07.89 Other specified disorders of thyroid
CPT/HCPCS: 76536

== ENCOUNTER 2018-07-23 09:42 | Outpatient (CLI) | payer BC ==
--- NOTE | 2018-07-23 11:35 | MMO ---
Bilateral MAMMO Bilat Screen DDI. CLINICAL HISTORY: Patient is 48 years old and is seen for screening. The patient has the following family history of breast cancer: mother, at age 72 and maternal aunt, malignant (generic). The patient has no personal history of cancer. VIEWS: The views performed were: bilateral craniocaudal and bilateral mediolateral oblique. FILMS COMPARED: The present examination has been compared to a prior imaging study performed at [facility] on 07/05/2013. This study has been interpreted with the assistance of computer-aided detection. MAMMOGRAM FINDINGS: There are scattered fibroglandular densities. There is a new focal asymmetry seen in the lower-inner region of the right breast. In the left breast, there are no suspicious masses, calcifications or areas of architectural distortion. IMPRESSION: NEW FOCAL ASYMMETRY IN THE RIGHT BREAST REQUIRES ADDITIONAL EVALUATION. RECOMMEND DIAGNOSTIC MAMMOGRAM. ACR BI-RADS Category 0 - Incomplete: Need additional imaging evaluation. [facility] will notify the patient of the need for additional imaging services. MAMMOGRAPHY NOTE: 1. A negative mammogram report should not delay a biopsy if a dominant of clinically suspicious mass is present. 2. Approximately 10% to 15% of breast cancers are not detected by mammography. 3. Adenosis and dense breasts may obscure an underlying neoplasm.
== END 2018-07-23 09:43 | disposition home or self-care (01) ==
LOC: SCSMAMMO 09:42
PROVIDERS: ATTEND Family Medicine
DX: Z12.31 Encounter for screening mammogram for malignant neoplasm of breast (principal); N64.89 Other specified disorders of breast; Z80.3 Family history of malignant neoplasm of breast
CPT/HCPCS: 77067

== ENCOUNTER 2018-07-25 12:41 | Outpatient (CLI) | payer BC ==
--- NOTE | 2018-07-25 13:21 | MMO ---
Right Breast MAMMO Unilat Diag DDI RT+KENNEY. CLINICAL HISTORY: Patient is 48 years old and is seen for follow-up at short-interval from prior study. The patient has the following family history of breast cancer: mother, at age 72 and maternal aunt, malignant (generic). The patient has no personal history of cancer. VIEWS: The views performed were: right craniocaudal with tomosynthesis; right mediolateral oblique with tomosynthesis; and right mediolateral with tomosynthesis. FILMS COMPARED: The present examination has been compared to prior imaging studies performed at [facility] on 07/23/2018, and at [facility] on 07/05/2013. MAMMOGRAM FINDINGS: There are scattered fibroglandular densities. There are no suspicious masses, suspicious calcifications, or new areas of architectural distortion. IMPRESSION: THERE IS NO MAMMOGRAPHIC EVIDENCE OF MALIGNANCY. A ROUTINE FOLLOW-UP MAMMOGRAM IN 1 YEAR IS RECOMMENDED. THE RESULTS OF THIS EXAM WERE SENT TO THE PATIENT. ACR BI-RADS Category 1 - Negative MAMMOGRAPHY NOTE: 1. A negative mammogram report should not delay a biopsy if a dominant of clinically suspicious mass is present. 2. Approximately 10% to 15% of breast cancers are not detected by mammography. 3. Adenosis and dense breasts may obscure an underlying neoplasm.
== END 2018-07-25 12:42 | disposition home or self-care (01) ==
LOC: BICMAMMO 12:41
PROVIDERS: ATTEND Family Medicine
DX: R92.2 Inconclusive mammogram (principal); Z80.3 Family history of malignant neoplasm of breast
CPT/HCPCS: G0279

== ENCOUNTER 2018-08-12 08:26 | Emergency (ER) | payer BC ==
[2018-08-12] MEDS ORDERED: Ketorolac Tromethamine 30 MG/ML VIAL ONE (08:42)
== END 2018-08-12 09:06 | disposition home or self-care (01) ==
LOC: SCSER 08:26
DX: M54.5 Low back pain (principal); F41.9 Anxiety disorder, unspecified; F31.9 Bipolar disorder, unspecified; Z87.891 Personal history of nicotine dependence
CPT/HCPCS: 96372; 99283; J1885

== ENCOUNTER 2018-11-07 18:06 | Emergency (ER) | payer BC ==
[2018-11-07] MEDS ORDERED: Aspirin Chewable 81 MG TAB ONE (18:53)
[2018-11-07 18:56] LABS: Hemoglobin 11.1 g/dL (12.0-16.0); Mean Corpuscular HGB CONC 32.4 g/dL (32.0-36.0); Mean Corpuscular Hemoglobin 23.9 pg (27.0-31.0); Mean Platelet Volume 7.2 fL (7.4-10.4); Platelet Count 283 thou/uL (130-400); RBC Distribution Width 13.6 % (11.5-14.5); Red Blood Cell (RBC) Count 4.66 mill/uL (4.20-5.40); White Blood Cell (WBC) Count 7.8 thou/uL (4.8-10.8)
[2018-11-07 19:08] LABS: #Basophils 0.1 thou/uL (0.0-0.2); #Eosinphils 0.1 thou/uL (0.0-0.7); #Lymphocytes 2.4 thou/uL (1.20-3.40); #Monocytes 0.6 thou/uL (0.11-0.59); #Neutrophils 4.6 thou/uL (1.40-6.50); %Basophils 1.1 % (0.0-1.0); %Eosinophils 1.2 % (0.0-10.0); %Lymphocytes 30.8 % (21.0-51.0); %Monocytes 8.1 % (0.0-10.0); %Neutrophils 58.8 % (42.0-75.0); MDiff Complete? YES; Microcytosis SLIGHT = 6-15 cells (100X) (0-5/hpf); Ovalocytes SLIGHT = 2-5 cells (100X) (0-1/hpf); Platelet Morphology Comment Appears Adequate
[2018-11-07 19:09] LABS: ALT (SGPT) 19 U/L (8-55); AST (SGOT) 25 U/L (5-34); Albumin 3.4 g/dL (3.5-5.0); Alkaline Phosphatase 75 U/L (40-110); Anion Gap 13 mmol/L (10-20); BUN (Urea Nitrogen) 14 mg/dL (7.0-18.7); Bilirubin, Total 0.3 mg/dL (0.2-1.2); Calc. Creatinine Clearance 0 mL/min (70-130); Calcium 8.5 mg/dL (7.8-10.44); Carbon Dioxide 24 mmol/L (22-29); Chloride 106 mmol/L (98-107); Estimated GFR-MDRD 69; Globulin 2.9 g/dL (2.4-3.5); Glucose 85 mg/dL (70-105); Potassium 4.6 mmol/L (3.5-5.1); Protein, Total 6.3 g/dL (6.0-8.3); Sodium 138 mmol/L (136-145)
--- NOTE | 2018-11-07 19:09 | RAD ---
RADIOGRAPH CHEST 2 VIEWS: DATE: 11/07/2018 HISTORY: 48-year-old female with acute chest pain and chills FINDINGS: The lungs are clear. The cardiomediastinal silhouette and hilar shadows appear normal. There is no pl eural effusion or pneumothorax. No osseous abnormality is identified. IMPRESSION: Normal
== END 2018-11-07 19:30 | disposition home or self-care (01) ==
LOC: SCSER 18:06
DX: R07.89 Other chest pain (principal); R00.1 Bradycardia, unspecified; R53.81 Other malaise; K21.9 Gastro-esophageal reflux disease without esophagitis; G43.909 Migraine, unspecified, not intractable, without status migrainosus; E03.9 Hypothyroidism, unspecified; F31.9 Bipolar disorder, unspecified; F41.9 Anxiety disorder, unspecified; Z87.891 Personal history of nicotine dependence
CPT/HCPCS: 36415; 71046; 80053; 84484; 85025